=== PATIENT | male | born 1940 | race Caucasian/White ===

== ENCOUNTER 2017-02-09 10:27 | Day surgery (SDC) | payer MEDICARE, BC ==
[2017-02-05 11:00] VITALS: BMI 27.8
[~2017-02-09 10:27] MED LIST: LACTATED RINGERS 1,000 ML IV SCH
[2017-02-09 12:06] VITALS: RESP 16; TEMP 97.6
[2017-02-09] MEDS ORDERED: LIDOCAINE 1% 20 ML VIAL (10MG/ML) FOR IV START INTRADERMA ONE (12:13)
[2017-02-09] MEDS ORDERED: PROPOFOL 10 MG/ML 20 ML VIAL IV ONE (12:29)
[2017-02-09] MEDS ORDERED: LIDOCAINE 1% INJ 10MG/ML (20 ML MDV) ONE (12:29)
--- NOTE | 2017-02-09 12:47 | P.PCN ---
Date of Procedure: 02/09/17 Preoperative Diagnosis: Postoperative Diagnosis: Procedure(s) Performed: Procedure: Esophagogastroduodenoscopy and biopsy. Preoperative diagnosis: Reflux and regurgitation symptoms. Postoperative diagnosis: 1. Small sliding hiatal hernia with no obvious esophagitis or complicated reflux disease. 2. Mild antral gastritis. 3. Multiple biopsies obtained from the duodenum, antrum and esophagus. Preparation and sedation: Was provided by anesthesia. Brief clinical history: The patient is 76-year-old male who was evaluated because of symptoms of reflux and nocturnal regurgitation. This evaluation is to assess for esophagitis, complicated reflux disease or other pathology. Procedure: With the patient on his left lateral decubitus position and after informed consent and adequate sedation, I passed the Olympus-GIF 160 video upper endoscope through the cricopharyngeus down the esophagus. GE junction was around 39-40 cm from the incisors. There was a small sliding hiatal hernia but no evidence of esophagitis or complicated reflux disease. The endoscope was then passed into the stomach which was insufflated with air and inspected in detail including the retroflex view in the cardia. There was some mottling and erythema in the antrum but no ulcers or erosions. Pyloric channel, duodenal bulb, post bulbar area and descending duodenum appeared within normal limits. Because of his symptoms, I obtained multiple biopsies from the duodenum , antrum and esophagus then the endoscope was withdrawn. The patient tolerated the procedure well. Plan: The patient was reassured. Will await biopsy results. In the meantime, he was instructed to continue antireflux diet and measures. Further plans will be made based on his course and biopsy results. I will keep you updated on his progress. Implants: Indications for Procedure: Operative Findings: Description of Procedure:
[2017-02-09 13:07] VITALS: BP 122/72; PULSE 68
== END 2017-02-09 13:18 | disposition home or self-care (01) ==
LOC: ORWHC2ENDO 10:27
DX: K29.50 Unspecified chronic gastritis without bleeding (principal); K21.9 Gastro-esophageal reflux disease without esophagitis; K44.9 Diaphragmatic hernia without obstruction or gangrene; I10 Essential (primary) hypertension; E78.5 Hyperlipidemia, unspecified; Z79.82 Long term (current) use of aspirin; Z79.899 Other long term (current) drug therapy
CPT/HCPCS: 88305; 88342; 43239; J2001; J2704

== ENCOUNTER 2018-05-11 15:42 | Emergency (ER) | payer MEDICARE, BC ==
[2018-05-11 15:54] VITALS: RESP 18
[2018-05-11] MEDS ORDERED: LIDOCAINE URO-JET JELLY 2% 5 ML KIT URETHRAL ONE (16:23)
--- NOTE | 2018-05-11 16:55 | ED ---
Male Urogenital HPI - General Chief complaint: Urogenital Stated complaint: trouble urinating Time Seen by Provider: 05/11/18 16:02 Source: patient, RN notes reviewed Mode of arrival: ambulatory Limitations: no limitations - History of Present Illness Initial comments: 77-year-old male presents emergency Department chief complaint of urinary difficulties. Patient states that he hasn't really has to go only gets a few dribbles out and states that he suddenly loses urine when he relaxes. Patient states that he states that there is just ago. Patient was seen at urgent care and was told that he may have a urinary tract infection as he had some white cells in his urine. Patient states his urine was sent for culture. Patient states that approximately 10 days ago he had his yearly urology visit in which she had rectal exam and normal PSA studies. Patient states that his never been on any medications for BPH family states that has been mildly enlarged. - Related Data Home Medications Medication Instructions Recorded Confirmed Aspirin 81 mg PO DAILY 02/05/17 02/09/17 Atorvastatin [Lipitor] 10 mg PO HS 02/05/17 02/09/17 Biotin 10,000 mcg PO DAILY 02/05/17 02/09/17 Krill Oil 500 mg PO DAILY 02/05/17 02/09/17 Lisinopril [Zestril] 20 mg PO HS 02/05/17 02/09/17 Lutein 25 mg PO DAILY 02/05/17 02/09/17 Saw [place] 450 mg PO DAILY 02/05/17 02/09/17 Previous Rx's Medication Instructions Recorded Tamsulosin [Flomax] 0.4 mg PO DAILY #14 cap 05/11/18 Allergies Allergy/AdvReac Type Severity Reaction Status Date / Time No Known Allergies Allergy Verified 05/11/18 15:53 Review of Systems ROS Statement: Those systems with pertinent positive or pertinent negative responses have been documented in the HPI. ROS Other: All systems not noted in ROS Statement are negative. Past Medical History Past Medical History: Hypertension Additional Past Medical History / Comment(s): tinnitis History of Any Multi-Drug Resistant Organisms: None Reported Past Surgical History: Tonsillectomy Additional Past Surgical History / Comment(s): colonoscopy Past Anesthesia/Blood Transfusion Reactions: No Reported Reaction Additional Past Anesthesia/Blood Transfusion Reaction / Comment(s): no hx blood transfusion Past Psychological History: No Psychological Hx Reported Smoking Status: Former smoker Past Alcohol Use History: Occasional Past Drug Use History: None Reported - Past Family History Mother Family Medical History: No Reported History Father Family Medical History: Cancer Additional Family Medical History / Comment(s): lung General Exam Limitations: no limitations General appearance: alert, in no apparent distress Respiratory exam: Present: normal lung sounds bilaterally. Absent: respiratory distress, wheezes, rales, rhonchi, stridor Cardiovascular Exam: Present: regular rate, normal rhythm, normal heart sounds. Absent: systolic murmur, diastolic murmur, rubs, gallop, clicks GI/Abdominal exam: Present: soft, normal bowel sounds. Absent: distended, tenderness, guarding, rebound, rigid Back exam: Absent: CVA tenderness (R), CVA tenderness (L) Course Vital Signs 05/11/18 15:46 Temperature 98.5 F Pulse Rate 77 Respiratory 18 Rate Blood Pressure 161/73 O2 Sat by Pulse 96 Oximetry Medical Decision Making - Medical Decision Making 77-year-old male presents emergency from for difficulty urinating. Patient was found have bladder scan of almost 500mls. Patient had a Avilez placed and symptoms relieved. Patient will leave Avilez catheter and follow-up with his urologist and be placed on Flomax at this time. - Lab Data Lab Results 05/11/18 Range/Units 16:32 Urine Color Yellow Urine Appearance Clear (Clear) Urine pH 5.5 (5.0-8.0) Ur Specific [place] 1.013 (1.001-1.035) Urine Protein Negative (Negative) Urine Glucose (UA) Negative (Negative) Urine Ketones 1+ H (Negative) Urine Blood Small H (Negative) Urine Nitrite Negative (Negative) Urine Bilirubin Negative (Negative) Urine Urobilinogen <2.0 (<2.0) mg/dL Ur Leukocyte Esterase Trace H (Negative) Urine RBC 2 (0-5) /hpf Urine WBC 3 (0-5) /hpf Ur Squamous Epith Cells <1 (0-4) /hpf Urine Bacteria Rare H (None) /hpf Urine Mucus Rare H (None) /hpf Disposition Clinical Impression: Urinary retention Disposition: HOME SELF-CARE Condition: Stable Instructions: Urinary Retention in Men (ED), Enlarged Prostate (BPH) (ED) Additional Instructions: Please return to the Emergency Department if symptoms worsen or any other concerns. Prescriptions: Tamsulosin [Flomax] 0.4 mg PO DAILY #14 cap Is patient prescribed a controlled substance at d/c from ED?: No Referrals: Fany King III, MD [Primary Care Provider] - 1-2 days Time of Disposition: 17:40
--- NOTE | 2018-05-11 17:06 | XR ---
EXAMINATION TYPE: XR KUB DATE OF EXAM: 05/11/2018 COMPARISON: NONE HISTORY: Dysuria TECHNIQUE: 2 views upright FINDINGS: There is no sign of intestinal obstruction or pneumoperitoneum. Fecal pattern is normal. Th ere are no pathologic calcifications over the kidneys. Lung bases are clear. There is no evidence of a mass. IMPRESSION: Nonacute abdomen.
[2018-05-11 17:11] LABS: Appearance,Urine Clear (Clear); Bacteria,Urine Rare /hpf; Bilirubin,Urine Negative (Negative); Blood,Urine Small (Negative); Color,Urine Yellow; Glucose,Urine (UA) Negative (Negative); Ketones,Urine 1+ (Negative); Leukocyte Esterase,Urine Trace (Negative); Mucus,Urine Rare /hpf; Nitrite,Urine Negative (Negative); PH, Urine 5.5 (5.0-8.0); Protein,Urine Negative (Negative); RBC,Urine 2 /hpf (0-5); Specific Gravity,Urine 1.013 (1.001-1.035); Squamous Epithelial Cell,Urine <1 /hpf (0-4); Urobilinogen,Urine <2.0 mg/dL (<2.0); WBC,Urine 3 /hpf (0-5)
[2018-05-11 17:52] VITALS: BP 132/80; PULSE 74; TEMP 97.8
== END 2018-05-11 18:07 | disposition home or self-care (01) ==
LOC: EC 15:42
DX: R33.9 Retention of urine, unspecified (principal); R30.0 Dysuria; I10 Essential (primary) hypertension; Z87.891 Personal history of nicotine dependence; Z98.890 Other specified postprocedural states; Z79.82 Long term (current) use of aspirin; Z79.899 Other long term (current) drug therapy
CPT/HCPCS: 51702; 74018; 81001; 87086; 99284

== ENCOUNTER → 2018-11-03 | Outpatient (CLI) | payer MEDICARE, BC ==
--- NOTE | 2018-11-03 14:33 | US ---
EXAMINATION TYPE: US kidneys/renal and bladder DATE OF EXAM: 11/03/2018 COMPARISON: NONE CLINICAL HISTORY: 78-year-old male UTI N39.0. TECHNIQUE: Multiple sonographic images of the kidneys and bladder are obtained. FINDINGS: Manager Placement notes: Limitations due to bowel gas and patient's large body habitus . EXAM MEASUREMENTS: Right Kidney: 11.0 x x5.4 x 6.6 cm Left Kidney: 11.1x 6.4 x 4.9 cm Post Void Residual Volume: 67 mL Right Kidney: No hydronephrosis or masses seen , possible calculi lateral Left Kidney: cyst lower pole 1.0 x 2.0 x 1.5 cm Bladder: Mild circumferential wall thickening at 0.6 cm. There is lobulated mural based soft tissue e xtending into the posterior bladder base measuring 4.3 x 3.6 x 3.5 cm arising in the expected locatio n of the median lobe of the prostate gland. A second audio technician examined the bladder to confirm that this represented the prostate gland rather than a bladder mass. Bilateral Jets seen: Yes Normal Post Void Residual: No IMPRESSION: 1. No hydronephrosis on either side. 2. Mild circumferential bladder wall thickening suggests chronic bladder wall hypertrophy or cystitis . 3. Apparent lobulated enlargement of the median lobe of the prostate gland with 4.3 x 3.6 x 3.5 cm so ft tissue extending into the posterior bladder base. A urothelial lesion is considered less likely gi elkin the location and apparent contiguity with the prostate gland below. Clinically correlate with PSA , TRACEY, patient's symptoms, and urine cytology. 4. Postvoid bladder volume of 67 mL compatible with urinary retention.
== END | disposition home or self-care (01) ==
LOC: RADUSWWP 10:30
PROVIDERS: ATTEND Urology
DX: N32.89 Other specified disorders of bladder (principal); N40.0 Benign prostatic hyperplasia without lower urinary tract symptoms
CPT/HCPCS: 76770

== ENCOUNTER → 2019-08-31 | Outpatient (CLI) | payer MEDICARE, BC | END | disposition home or self-care (01) | LOC: RADMRIMAIN 09:06 | PROVIDERS: ATTEND Family Medicine | DX: Z53.9 Procedure and treatment not carried out, unspecified reason (principal) ==

== ENCOUNTER → 2020-11-19 | Outpatient (CLI) | payer MEDICARE, BC ==
--- NOTE | 2020-11-19 17:01 | ECHOF ---
Referral Reason:I34.0 Nonrheumatic mitral (valve) insufficiency MEASUREMENTS -------- HEIGHT: 180.3 cm WEIGHT: 84.8 kg BP: 166/72 IVSd: 1.3 cm (0.6 - 1.1) LVIDd: 3.6 cm (3.9 - 5.3) LVPWd: 1.2 cm (0.6 - 1.1) EDV(Teich): 55 ml IVSs: 1.8 cm LVIDs: 2.8 cm LVPWs: 1.4 cm %IVS Thck: 35 % ESV(Teich): 30 ml EF(Teich): 46 % %FS: 22 % SV(Teich): 25 ml LVOT Diam: 2.1 cm LA Diam: 3.1 cm (2.7 - 3.8) RVIDd: 3.1 cm (< 3.3) LALs A4C: 4.7 cm LAAs A4C: 16.3 cm LAESV A-L A4C: 48 ml LAESV MOD A4C: 44 ml LALs A2C: 5.1 cm LAAs A2C: 16.7 cm LAESV A-L A2C: 47 ml LAESV MOD A2C: 43 ml LAESV(A-L): 49 ml LAESV Index (A-L): 23.97 ml/m Ao Diam: 3.6 cm (2.0 - 3.7) AV Cusp: 1.4 cm (1.5 - 2.6) EPSS: 0.4 cm MV E Hernandez: 0.60 m/s MV DecT: 319 ms MV Dec [place]: 1.9 m/s MV A Hernandez: 1.05 m/s MV E/A Ratio: 0.57 MV PHT: 93 ms LVOT Vmax: 1.49 m/s LVOT maxP.87 mmHg LVOT Vmax: 1.52 m/s LVOT Vmean: 0.94 m/s LVOT maxP.23 mmHg LVOT meanP.20 mmHg LVOT Env.Ti: 332 ms LVOT VTI: 31.1 cm AV Vmax: 2.41 m/s AV maxP.17 mmHg DONNELL Vmax, Pt: 2.1 cm DONNELL Vmax: 2.2 cm AV Vmax: 2.53 m/s AV Vmean: 1.70 m/s AV maxP.70 mmHg AV meanP.88 mmHg AV Env.Ti: 318 ms AV VTI: 54.2 cm DONNELL Vmax: 2.0 cm DONNELL (VTI): 2.0 cm DONNELL Vmax, Pt: 2.0 cm MV EF SLOPE: 35.31 mm/s (70 - 150) MV EXCURSION: 17.35 mm (> 18.000) FINDINGS -------- Sinus rhythm. This was a technically good study. The left ventricular size is normal. There is mild concentric left ventricular hypertrophy. Overa ll left ventricular systolic function is normal with, an EF between 60 - 65 %. The right ventricle is normal in size. Normal LA size by volume 22+/-6 ml/m2. The right atrium is normal in size. Aneurysmal Interatrial septum. There is mild to moderate aortic valve sclerosis. Trace amount of aortic regurgitation. There is mild aortic stenosis present. Peak/mean gradient across the Aortic Valve is 25.70mmHg / 13.88mmHg. The mitral valve leaflets are mildly thickened. Mild mitral annular calcification present. There is trace to mild mitral regurgitation. The tricuspid valve appears structurally normal. Unable to estimate RVSP due to inadequate TR jet s pectral doppler profile. Trace/mild (physiologic) pulmonic regurgitation. The aortic root size is normal. Normal inferior vena cava with normal inspiratory collapse consistent with estimated right atrial pre ssure of 5 mmHg. There is no pericardial effusion. CONCLUSIONS -------- 1. The left ventricular size is normal. 2. There is mild concentric left ventricular hypertrophy. 3. Overall left ventricular systolic function is normal with, an EF between 60 - 65 %. 4. Aneurysmal Interatrial septum. 5. There is mild to moderate aortic valve sclerosis. 6. Trace amount of aortic regurgitation. 7. There is mild aortic stenosis present. 8. Peak/mean gradient across the Aortic Valve is 25.70mmHg / 13.88mmHg. 9. The mitral valve leaflets are mildly thickened. 10. Mild mitral annular calcification present. 11. There is trace to mild mitral regurgitation. 12. Unable to estimate RVSP due to inadequate TR jet spectral doppler profile. 13. Trace/mild (physiologic) pulmonic regurgitation. 14. There is no pericardial effusion. SHALE PROCESSING TECHNICIAN: Marquita Perkins RDCS
== END | disposition home or self-care (01) ==
LOC: RADECHMAIN 07:44
PROVIDERS: ATTEND Family Medicine
DX: I34.0 Nonrheumatic mitral (valve) insufficiency (principal); I37.1 Nonrheumatic pulmonary valve insufficiency; I51.7 Cardiomegaly; I25.3 Aneurysm of heart; I35.8 Other nonrheumatic aortic valve disorders; I35.0 Nonrheumatic aortic (valve) stenosis
CPT/HCPCS: 93306

== ENCOUNTER → 2021-06-30 | Outpatient (CLI) | payer MEDICARE, BC ==
[2021-06-30 08:15] LABS: African American GFR (CKD) >90 (>60 ml/min/1.73 sqM); Blood Urea Nitrogen 17 mg/dL (9-20); Non-African American GFR(CKD) 84 (>60 ml/min/1.73 sqM)
--- NOTE | 2021-06-30 10:49 | CT ---
EXAMINATION TYPE: CT brain w con DATE OF EXAM: 06/30/2021 COMPARISON: None INDICATION: memory loss DLP: 945.5 mGycm, Automated exposure control for dose reduction was used. CONTRAST: 100 mL Isovue-300 CT of the brain is performed utilizing 3 mm thick sections through the posterior fossa and 3 mm thick sections through the remaining calvarium. Study is performed within 24 hours of arrival to the hosp ital. No abnormal hyperdensity is present to suggest an acute intracranial hemorrhage. No mass lesion is evident. No suspicious enhancement is evident. No acute infarcts are evident. Periventricular white matter hypodensity is present, likely on the bas is of chronic white matter ischemic changes. Ventricles and sulci are appropriate for the patient age. Mild mucosal thickening is within ethmoid air cells. Remaining paranasal sinuses and mastoid air cell s are clear. IMPRESSIONS: 1. Normal postcontrast CT brain
== END | disposition home or self-care (01) ==
LOC: RADCTMAIN 07:21
PROVIDERS: ATTEND Family Medicine
DX: R41.3 Other amnesia (principal)
CPT/HCPCS: 82565; 84520; 70460; 36415; Q9967

== ENCOUNTER → 2021-12-05 | Outpatient (CLI) | payer MEDICARE, BC ==
[2021-12-05 14:11] LABS: Basophils # (A) 0.07 X 10*3/uL (0.00-0.10); Basophils % (A) 1.1 %; Eosinophils % (A) 3.1 %; HGB 14.2 g/dL (13.0-17.0); Immature Grans, Automated 0.2 %; Lymphocytes # (A) 1.85 X 10*3/uL (0.90-5.00); Lymphocytes % (A) 28.6 %; MCH 32.1 pg (27.0-32.0); MCHC 33.8 g/dL (32.0-37.0); Mean Platelet Volume 9.3 fL (9.5-12.2); Monocytes % (A) 9.3 %; NRBC Per 100 WBC 0 /100 WBCS (0.0-0.0); Neutrophils # (A) 3.73 X 10*3/uL (1.80-7.70); Neutrophils % (A) 57.7 %; Platelet Count 354 X 10*3/uL (140-440); RBC 4.42 X 10*6/uL (4.40-5.60); RDW 12.5 % (11.5-14.5); WBC 6.46 X 10*3/uL (4.50-10.00)
[2021-12-05 14:51] LABS: Potassium 4.5 mmol/L (3.5-5.5)
[2021-12-05 16:47] LABS: Erythrocyte Sedimentation Rate 10 mm/Hr (0-20)
[2021-12-05 23:05] LABS: T4, Free (Free Thyroxine) 1.5 ng/dL (0.800-1.800)
== END | disposition home or self-care (01) ==
LOC: LABWHC1 09:06
PROVIDERS: ATTEND Psychiatry & Neurology Vascular Neurology
DX: R41.3 Other amnesia (principal)
CPT/HCPCS: 36415; 80051; 82140; 82607; 82746; 84439; 84450; 84460; 84481; 85025; 85652; 86038; 86780

== ENCOUNTER → 2022-02-25 | Outpatient (CLI) | payer MEDICARE, BC ==
[2022-02-25 17:08] LABS: African American GFR (CKD) 93.8 (60.0-200.0); Anion Gap 9.1 mmol/L (10.00-18.00); BUN/Creat Ratio 16.33 Ratio (12.00-20.00); Blood Urea Nitrogen 14.7 mg/dL (9.0-27.0); Calcium 9.6 mg/dL (8.7-10.3); Carbon Dioxide 25.9 mmol/L (20.0-27.5); Non-African American GFR(CKD) 80.9 (60.0-200.0); Potassium 4.1 mmol/L (3.5-5.5)
[2022-02-25 17:23] LABS: Basophils # (A) 0.03 X 10*3/uL (0.00-0.10); Basophils % (A) 0.5 %; Eosinophils # (A) 0.27 X 10*3/uL (0.04-0.35); Eosinophils % (A) 4.1 %; HCT 38.9 % (39.6-50.0); HGB 13.1 g/dL (13.0-17.0); Immature Grans, Automated 0.5 %; Lymphocytes # (A) 1.68 X 10*3/uL (0.90-5.00); Lymphocytes % (A) 25.6 %; MCH 32.7 pg (27.0-32.0); MCHC 33.7 g/dL (32.0-37.0); Mean Platelet Volume 9.8 fL (9.5-12.2); Monocytes # (A) 0.66 X 10*3/uL (0.20-1.00); Monocytes % (A) 10.1 %; NRBC Per 100 WBC 0 /100 WBCS (0.0-0.0); Neutrophils # (A) 3.89 X 10*3/uL (1.80-7.70); Neutrophils % (A) 59.2 %; Platelet Count 297 X 10*3/uL (140-440); RBC 4.01 X 10*6/uL (4.40-5.60); RDW 12.4 % (11.5-14.5); WBC 6.56 X 10*3/uL (4.50-10.00)
== END | disposition home or self-care (01) ==
LOC: LABPAT 10:13
PROVIDERS: ATTEND Urology
DX: Z01.812 Encounter for preprocedural laboratory examination (principal); N40.1 Benign prostatic hyperplasia with lower urinary tract symptoms
CPT/HCPCS: 80048; 85025

== ENCOUNTER 2022-03-05 06:19 | Day surgery (SDC) | payer MEDICARE, BC ==
[2022-03-03 09:58] VITALS: BMI 22.1
[2022-03-05] MEDS ORDERED: ONDANSETRON 4 MG/2 ML VIAL IVP ONE (06:34)
[2022-03-05] MEDS ORDERED: DEXAMETHASONE SOD PHOSPHATE 4 MG/ML 1 ML VIAL IV ONE (06:34)
[2022-03-05] MEDS ORDERED: LIDOCAINE 1% (10MG/ML) FOR IV START INTRADERMA PRN (06:34)
[2022-03-05] MEDS ORDERED: LACTATED RINGERS 1,000 ML IV SCH (06:34)
--- NOTE | 2022-03-05 06:44 | P.GSHP ---
History of Present Illness H&P Date: 03/04/22 Chief Complaint: Incomplete bladder emptying The patient is a 81-year-old white male with dementia. He has a history of incomplete bladder emptying due to BPH. He was seen by me in January 2021, at which time the postvoid residual was 2 25 mL. He was taking tamsulosin at that time. His status was essentially changed when he was seen in July 2021. However, when seen recently the postvoid residual had increased to 603 mL. He was offered the options of increasing the tamsulosin dosage to 0.8 mg daily, adding finasteride, or undergoing a TURP. He has chosen the latter. - Constitutional Constitutional: Denies chills, Denies fever - Cardiovascular Cardiovascular: Reports high blood pressure - Genitourinary (Male) Genitourinary: Reports urinary frequency, Reports urinary hesitancy Past Medical History Past Medical History: Hyperlipidemia, Hypertension, Memory Impairment, Prostate Disorder Additional Past Medical History / Comment(s): tinnitis. PROSTATE DISORDER. VASCULAR DEMENTIA AND ALZHEIMER'S History of Any Multi-Drug Resistant Organisms: None Reported Past Surgical History: Tonsillectomy Additional Past Surgical History / Comment(s): colonoscopy. BILAT CATARACTS REMOVED WITH LENS IMPLANTS Past Anesthesia/Blood Transfusion Reactions: No Reported Reaction Additional Past Anesthesia/Blood Transfusion Reaction / Comment(s): no hx blood transfusion Smoking Status: Former smoker - Past Family History Mother Family Medical History: No Reported History Father Family Medical History: Cancer Additional Family Medical History / Comment(s): lung Medications and Allergies Home Medications Medication Instructions Recorded Confirmed Type Aspirin 81 mg PO DAILY 02/05/17 03/03/22 History Atorvastatin [Lipitor] 10 mg PO HS 02/05/17 03/03/22 History Krill Oil 500 mg PO DAILY 02/05/17 03/03/22 History lisinopriL [Zestril] 20 mg PO HS 02/05/17 03/03/22 History Donepezil [Aricept] 5 mg PO BID 03/03/22 03/03/22 History Tamsulosin [Flomax] 0.4 mg PO BID 03/03/22 03/03/22 History Ubidecarenone [Coenzyme Q10] 200 mg PO DAILY 03/03/22 03/03/22 History Allergies Allergy/AdvReac Type Severity Reaction Status Date / Time No Known Allergies Allergy Verified 03/05/22 06:43 Surgical - Exam - General well developed, well nourished, no distress - Respiratory normal respiratory effort - Abdomen Abdomen: soft, non tender, no guarding, no rigid, no rebound Hernia: inguinal - Genitourinary normal penis with no external lesions, testicles non-tender - Rectum Rectum: normal sphincter tone, no masses, other (Prostate moderately enlarged and smooth) - Psychiatric oriented to time, oriented to person, oriented to place, speech is normal, memory intact Assessment and Plan (1) Benign prostatic hyperplasia with lower urinary tract symptoms Current Visit: No Status: Acute Code(s): N40.1 - BENIGN PROSTATIC HYPERPLASIA WITH LOWER URINARY TRACT SYMP SNOMED Code(s): 400944196 Plan: Cystoscopy, TURP: I discussed the options concerning surgery versus medication. I advised him with regard to TURP as opposed to minimally invasive procedures such as Urolift. Potential risks were discussed, including anesthesia, bleeding , infection, incontinence, persistent voiding difficulty, and vesical neck contracture. He and his are aware that he may require hospitalization postoperatively.
[2022-03-05 06:48] VITALS: TEMP 97
[2022-03-05] MEDS ORDERED: HYDROmorphone 0.5 MG/0.5 ML SYRINGE IVP PRN (07:00)
[2022-03-05] MEDS ORDERED: ONDANSETRON 4 MG/2 ML VIAL IVP PRN (07:00)
[2022-03-05] MEDS ORDERED: LIDOCAINE 2% INJ 20 MG/ML (2 ML VIAL) ONE (07:38)
[2022-03-05] MEDS ORDERED: ePHEDrine 50 MG/ML 1 ML VIAL ONE (07:38)
[2022-03-05] MEDS ORDERED: FUROSEMIDE 10 MG/ML 2 ML VIAL ONE (07:38)
[2022-03-05] MEDS ORDERED: fentaNYL (PF) 50 MCG/ML 2 ML AMP ONE (07:38)
[2022-03-05] MEDS ORDERED: PROPOFOL 10 MG/ML 20 ML VIAL IV ONE (07:38)
[2022-03-05] MEDS ORDERED: ROCURONIUM 10 MG/ML (5 ML VIAL) IV ONE (07:38)
[2022-03-05] MEDS ORDERED: HYDROmorphone (PF) 1 MG/ML ONE (07:38)
[2022-03-05] MEDS ORDERED: SUCCINYLCHOLINE CHLORIDE 100 MG/5 ML SYR IV ONE (07:38)
[2022-03-05] MEDS ORDERED: LACTATED RINGERS 1,000 ML IV ONE (10:37)
[2022-03-05 11:35] VITALS: RESP 16
--- NOTE | 2022-03-05 11:41 | P.OP ---
Date of Procedure: 03/05/22 Preoperative Diagnosis: BPH with obstruction Postoperative Diagnosis: Same Procedure(s) Performed: Cystoscopy, bipolar transurethral resection of prostate (TURP) Anesthesia: JORDAN Surgeon: Patrick Ramachandran Estimated Blood Loss (ml): 50 IV fluids (ml): 1,000 Pathology: other (Prostate chips) Condition: stable Disposition: PACU Indications for Procedure: The patient is a 81-year-old white male with dementia. He has a history of incomplete bladder emptying due to BPH. He was seen by me in January 2021, at which time the postvoid residual was 2 25 mL. He was taking tamsulosin at that time. His status was essentially changed when he was seen in July 2021. However, when seen recently the postvoid residual had increased to 603 mL. He was offered the options of increasing the tamsulosin dosage to 0.8 mg daily, adding finasteride, or undergoing a TURP. He has chosen the latter. Operative Findings: Trilobar BPH, completely obstructing. Description of Procedure: The patient was taken in the operating room and placed in the dorsolithotomy position. The external genitalia was prepped and draped sterilely. The 25- [place] [employer] resectoscope sheath was introduced into the bladder. The bladder was inspected. Both ureteral orifices were of normal anatomic location and configuration, and clear urine effluxed from both. No tumors or foreign bodies were seen. The bladder was trabeculated with multiple cellules. Examination of the prostate revealed complete obstruction with a trilobar configuration. Using the bipolar cutting loop, the median lobe was initially resected. Next, the la teral lobes were resected down to the surgical capsule. The floor of the prostate was then resected, proximal to the verumontanum. Next, the remaining anterior tissue was resected. The residual apical tissue was then carefully resected, with care taken to avoid injury to the external urinary sphincter. The resection was carried down to the surgical capsule in all 4 quadrants. The prostatic fossa was then carefully examined, and any areas of bleeding were controlled with electrocautery. Excellent hemostasis was attained. The resectoscope was withdrawn into the bulbous urethra. The external urinary sphincter remained intact. The prostatic fossa was open. The [employer] evacuator was used to remove all prostate chips from the bladder. These were saved and sent for pathologic examination. The resectoscope was removed, and a 20 [place] Avilez catheter was placed. The return was essentially clear. The patient tolerated the procedure well was taken to the recovery room in stable condition.
[2022-03-05 12:34] VITALS: BP 122/69; PULSE 65
== END 2022-03-05 13:18 | disposition home or self-care (01) ==
LOC: OR 06:19
PROVIDERS: ATTEND Urology
DX: N40.1 Benign prostatic hyperplasia with lower urinary tract symptoms (principal); N41.0 Acute prostatitis; N13.8 Other obstructive and reflux uropathy; R39.14 Feeling of incomplete bladder emptying; R39.11 Hesitancy of micturition; R35.0 Frequency of micturition; E78.5 Hyperlipidemia, unspecified; I10 Essential (primary) hypertension; G30.9 Alzheimer's disease, unspecified; F02.80 Dementia in other diseases classified elsewhere, unspecified severity, without behavioral disturbance, psychotic disturbance, mood disturbance, and anxiety; Z87.891 Personal history of nicotine dependence; Z80.1 Family history of malignant neoplasm of trachea, bronchus and lung; Z79.82 Long term (current) use of aspirin; Z79.899 Other long term (current) drug therapy
CPT/HCPCS: 52601; J1100; J1940; J0690; J2405; J3010; J1170; J0330; J2704; J2001; 88305

== ENCOUNTER 2022-03-06 15:54 | Inpatient (IN) | payer MEDICARE, BC ==
[2022-03-06] MEDS ORDERED: cefTRIAXone IN SWFI 1,000 MG/10 ML SYRINGE IVP STA (15:58)
[2022-03-06] MEDS ORDERED: IBUPROFEN IV 600 MG in SODIUM CHLORIDE 0.9% 250 ML IV STA (16:02)
[2022-03-06] MEDS ORDERED: ACETAMINOPHEN IV (For NPO) 1,000 MG in EMPTY BAG 1 BAG IVPB STA (16:03)
[2022-03-06] MEDS: SODIUM CHLORIDE 0.9% 500 ML 500 ML IV SCH ×3 (16:12→18:07)
--- NOTE | 2022-03-06 16:25 | XR ---
EXAMINATION TYPE: XR chest 1V DATE OF EXAM: 03/06/2022 COMPARISON: NONE HISTORY: Fever, altered mental status TECHNIQUE: Single frontal view of the chest is obtained. FINDINGS: There is no focal air space opacity, pleural effusion, or pneumothorax seen. The cardiac silhouette size is within normal limits. There are overlying leads. The osseous structures are intac t, arthropathy noted in the shoulders. IMPRESSION: No acute process.
[2022-03-06 16:32] LABS: Basophils % (A) 0 %; Eosinophils # (A) 0.1 k/uL (0-0.7); Eosinophils % (A) 1 %; HCT 42.2 % (39.0-53.0); HGB 13.8 gm/dL (13.0-17.5); Lymphocytes # (A) 0.9 k/uL (1.0-4.8); Lymphocytes % (A) 9 %; MCH 32.4 pg (25.0-35.0); MCHC 32.7 g/dL (31.0-37.0); Mean Platelet Volume 7.6; Monocytes # (A) 0.1 k/uL (0-1.0); Monocytes % (A) 1 %; Neutrophils % (A) 89 %; Platelet Count 323 k/uL (150-450); RBC 4.26 m/uL (4.30-5.90); RDW 12.4 % (11.5-15.5); WBC 10.1 k/uL (3.8-10.6)
--- NOTE | 2022-03-06 16:40 | ED ---
General Adult HPI - General Chief complaint: Altered Mental Status Stated complaint: AMS Time Seen by Provider: 03/06/22 16:00 Source: patient, family, RN notes reviewed, old records reviewed Mode of arrival: ambulatory Limitations: altered mental status - History of Present Illness Initial comments: This is a 81-year-old male who presents emergency Department because of altered mental status. Patient had prostate surgery yesterday and the states he was doing fine and then today he started to become very cold and shaking because he was so cold and started becoming altered on the way to the hospital she noted that he was started try to spit evenly wasn't spitting anything out. Patient then became combative with her and we got to the emergency department he refused to listen or do anything he was asked to do so he had to be brought back and restrained immediately. Patient's initial rectal temperature was 103. - Related Data Home Medications Medication Instructions Recorded Confirmed lisinopriL [Zestril] 20 mg PO DAILY 02/05/17 03/06/22 Donepezil [Aricept] 5 mg PO BID 03/03/22 03/06/22 Tamsulosin [Flomax] 0.4 mg PO BID 03/03/22 03/06/22 Atorvastatin [Lipitor] 10 mg PO DAILY 03/06/22 03/06/22 Allergies Allergy/AdvReac Type Severity Reaction Status Date / Time No Known Allergies Allergy Verified 03/06/22 18:27 Review of Systems ROS Statement: Those systems with pertinent positive or pertinent negative responses have been documented in the HPI. ROS Other: All systems not noted in ROS Statement are negative. Past Medical History Past Medical History: Hypertension Additional Past Medical History / Comment(s): tinnitis History of Any Multi-Drug Resistant Organisms: None Reported Past Surgical History: Tonsillectomy Additional Past Surgical History / Comment(s): colonoscopy Past Anesthesia/Blood Transfusion Reactions: No Reported Reaction Additional Past Anesthesia/Blood Transfusion Reaction / Comment(s): no hx blood transfusion Past Alcohol Use History: Occasional - Past Family History Mother Family Medical History: No Reported History Father Family Medical History: Cancer Additional Family Medical History / Comment(s): lung General Exam - General Exam Comments Initial Comments: GENERAL: Patient is well-developed and well-nourished. Patient is nontoxic and well- hydrated and is in mild distress. ENT: Neck is soft and supple. No significant lymphadenopathy is noted. Oropharynx is clear. Moist mucous membranes. Neck has full range of motion without eliciting any pain. EYES: The sclera were anicteric and conjunctiva were pink and moist. Extraocular movements were intact and pupils were equal round and reactive to light. Eyelids were unremarkable. PULMONARY: Unlabored respirations. Good breath sounds bilaterally. No audible rales rhonchi or wheezing was noted. CARDIOVASCULAR: There is a regular rate and rhythm without any murmurs gallops or rubs. ABDOMEN: Soft and nontender with normal bowel sounds. She has a Avilez catheter in place SKIN: Skin is clear with no lesions or rashes and otherwise unremarkable. NEUROLOGIC: Patient is alert and oriented 1. Cranial nerves II through XII are grossly intact. Motor and sensory are also intact. Normal speech, volume and content. Symmetrical smile. MUSCULOSKELETAL: Normal extremities with adequate strength and full range of motion. No lower extremity swelling or edema. No calf tenderness. LYMPHATICS: No significant lymphadenopathy is noted PSYCHIATRIC: Patient is very combative Limitations: altered mental status Course Vital Signs 03/06/22 03/06/22 03/06/22 15:58 16:06 16:12 Temperature 103.0 F H Pulse Rate 120 H 121 H Respiratory 24 31 H 26 H Rate Blood Pressure 172/83 129/112 O2 Sat by Pulse 99 99 Oximetry 03/06/22 03/06/22 16:30 16:40 Temperature 98.7 F Pulse Rate 112 H 98 Respiratory 22 23 Rate Blood Pressure 129/58 O2 Sat by Pulse 100 100 Oximetry Procedures - Restraint - Face to Face Restraint Occurrence 1 Patient's Immediate Situation: Endangers self safety, Endangers others' safety, Endangers staff safety Patient's Reaction to the Intervention: Uncooperative, Aggressive, Combative, Restless Patient's Medical & Behavioral Condition: Awake, Confused, Agitated Need to Continue or Terminate Restraint or Seclusion: Continue Face to Face Eval of Restraint Date: 03/06/22 Face to Face Eval of Restraint Time: 15:56 - Sepsis Sepsis Focused Exam #1 Time Sepsis Criteria Met: 17:55 Sepsis Focused Exam Date: 03/06/22 Sepsis Focused Exam Time: 18:52 Sepsis Focused Exam Complete: Yes Vital Signs & RN Notes Reviewed: Yes Capillary Refill: None: Fingers Peripheral Pulses: Normal: Radial (R) Skin Color: Normal for Patient Respiratory Exam: normal lung sounds Cardiovascular Exam: regular rate, normal rhythm Medical Decision Making - Medical Decision Making EKG shows sinus rhythm at 96 bpm MI interval is 205 cardiac 129 QT interval 390 QTC is 444. Patient's EKG shows a right bundle branch block. Patient received 2 g of Rocephin IV. Patient also received 2.5 L of fluid. Patient also received Ofirmev and ibuprofen IV. Patient was much calmer more alert but still not to his neurologic baseline. [facility] admitted the patient wrote admitting orders I consulted Dr. Ramachandran I did speak to Dr. Ramachandran as well. - Lab Data Result diagrams: 03/06/22 16:04 03/06/22 16:04 Lab Results 03/06/22 03/06/22 03/06/22 Range/Units 16:04 16:04 16:04 WBC 10.1 (3.8-10.6) k/uL RBC 4.26 L (4.30-5.90) m/uL Hgb 13.8 (13.0-17.5) gm/dL Hct 42.2 (39.0-53.0) % MCV 99.0 (80.0-100.0) fL MCH 32.4 (25.0-35.0) pg MCHC 32.7 (31.0-37.0) g/dL RDW 12.4 (11.5-15.5) % Plt Count 323 (150-450) k/uL MPV 7.6 Neutrophils % 89 % Lymphocytes % 9 % Monocytes % 1 % Eosinophils % 1 % Basophils % 0 % Neutrophils # 9.0 H (1.3-7.7) k/uL Lymphocytes # 0.9 L (1.0-4.8) k/uL Monocytes # 0.1 (0-1.0) k/uL Eosinophils # 0.1 (0-0.7) k/uL Basophils # 0.0 (0-0.2) k/uL PT 10.8 (9.0-12.0) sec INR 1.0 (<1.2) APTT 22.1 (22.0-30.0) sec Sodium 132 L (137-145) mmol/L Potassium 3.8 (3.5-5.1) mmol/L Chloride 98 (98-107) mmol/L Carbon Dioxide 22 (22-30) mmol/L Anion Gap 12 mmol/L BUN 22 H (9-20) mg/dL Creatinine 1.39 H (0.66-1.25) mg/dL Est GFR (CKD-EPI)AfAm 56 (>60 ml/min/1.73 sqM) Est GFR (CKD-EPI)NonAf 48 (>60 ml/min/1.73 sqM) Glucose 104 H (74-99) mg/dL Plasma Lactic Acid Yimi (0.7-2.0) mmol/L Calcium 9.7 (8.4-10.2) mg/dL Total Bilirubin 0.7 (0.2-1.3) mg/dL AST 28 (17-59) U/L ALT 24 (4-49) U/L Alkaline Phosphatase 85 (38-126) U/L Total Protein 6.9 (6.3-8.2) g/dL Albumin 4.2 (3.5-5.0) g/dL Urine Color Urine Appearance (Clear) Urine pH (5.0-8.0) Ur Specific Dresher (1.001-1.035) Urine Protein (Negative) Urine Glucose (UA) (Negative) Urine Ketones (Negative) Urine Blood (Negative) Urine Nitrite (Negative) Urine Bilirubin (Negative) Urine Urobilinogen (<2.0) mg/dL Ur Leukocyte Esterase (Negative) Urine RBC (0-5) /hpf Urine WBC (0-5) /hpf Urine WBC Clumps (None) /hpf Hyaline Casts (0-2) /lpf Urine Mucus (None) /hpf Coronavirus (PCR) (Not Detectd) Influenza Type A RNA (Not Detectd) Influenza Type B (PCR) (Not Detectd) 03/06/22 03/06/22 03/06/22 Range/Units 16:04 17:13 17:18 WBC (3.8-10.6) k/uL RBC (4.30-5.90) m/uL Hgb (13.0-17.5) gm/dL Hct (39.0-53.0) % MCV (80.0-100.0) fL MCH (25.0-35.0) pg MCHC (31.0-37.0) g/dL RDW (11.5-15.5) % Plt Count (150-450) k/uL MPV Neutrophils % % Lymphocytes % % Monocytes % % Eosinophils % % Basophils % % Neutrophils # (1.3-7.7) k/uL Lymphocytes # (1.0-4.8) k/uL Monocytes # (0-1.0) k/uL Eosinophils # (0-0.7) k/uL Basophils # (0-0.2) k/uL PT (9.0-12.0) sec INR (<1.2) APTT (22.0-30.0) sec Sodium (137-145) mmol/L Potassium (3.5-5.1) mmol/L Chloride (98-107) mmol/L Carbon Dioxide (22-30) mmol/L Anion Gap mmol/L BUN (9-20) mg/dL Creatinine (0.66-1.25) mg/dL Est GFR (CKD-EPI)AfAm (>60 ml/min/1.73 sqM) Est GFR (CKD-EPI)NonAf (>60 ml/min/1.73 sqM) Glucose (74-99) mg/dL Plasma Lactic Acid Yimi 6.2 H* (0.7-2.0) mmol/L Calcium (8.4-10.2) mg/dL Total Bilirubin (0.2-1.3) mg/dL AST (17-59) U/L ALT (4-49) U/L Alkaline Phosphatase (38-126) U/L Total Protein (6.3-8.2) g/dL Albumin (3.5-5.0) g/dL Urine Color Red Urine Appearance Turbid (Clear) Urine pH 6.5 (5.0-8.0) Ur Specific Dresher 1.019 (1.001-1.035) Urine Protein 3+ H (Negative) Urine Glucose (UA) Negative (Negative) Urine Ketones Negative (Negative) Urine Blood Large H (Negative) Urine Nitrite Negative (Negative) Urine Bilirubin Negative (Negative) Urine Urobilinogen <2.0 (<2.0) mg/dL Ur Leukocyte Esterase Large H (Negative) Urine RBC >182 H (0-5) /hpf Urine WBC >182 H (0-5) /hpf Urine WBC Clumps Many H (None) /hpf Hyaline Casts 72 H (0-2) /lpf Urine Mucus Few H (None) /hpf Coronavirus (PCR) (Not Detectd) Influenza Type A RNA Not Detected (Not Detectd) Influenza Type B (PCR) Not Detected (Not Detectd) 03/06/22 Range/Units 17:45 WBC (3.8-10.6) k/uL RBC (4.30-5.90) m/uL Hgb (13.0-17.5) gm/dL Hct (39.0-53.0) % MCV (80.0-100.0) fL MCH (25.0-35.0) pg MCHC (31.0-37.0) g/dL RDW (11.5-15.5) % Plt Count (150-450) k/uL MPV Neutrophils % % Lymphocytes % % Monocytes % % Eosinophils % % Basophils % % Neutrophils # (1.3-7.7) k/uL Lymphocytes # (1.0-4.8) k/uL Monocytes # (0-1.0) k/uL Eosinophils # (0-0.7) k/uL Basophils # (0-0.2) k/uL PT (9.0-12.0) sec INR (<1.2) APTT (22.0-30.0) sec Sodium (137-145) mmol/L Potassium (3.5-5.1) mmol/L Chloride (98-107) mmol/L Carbon Dioxide (22-30) mmol/L Anion Gap mmol/L BUN (9-20) mg/dL Creatinine (0.66-1.25) mg/dL Est GFR (CKD-EPI)AfAm (>60 ml/min/1.73 sqM) Est GFR (CKD-EPI)NonAf (>60 ml/min/1.73 sqM) Glucose (74-99) mg/dL Plasma Lactic Acid Yimi (0.7-2.0) mmol/L Calcium (8.4-10.2) mg/dL Total Bilirubin (0.2-1.3) mg/dL AST (17-59) U/L ALT (4-49) U/L Alkaline Phosphatase (38-126) U/L Total Protein (6.3-8.2) g/dL Albumin (3.5-5.0) g/dL Urine Color Urine Appearance (Clear) Urine pH (5.0-8.0) Ur Specific Dresher (1.001-1.035) Urine Protein (Negative) Urine Glucose (UA) (Negative) Urine Ketones (Negative) Urine Blood (Negative) Urine Nitrite (Negative) Urine Bilirubin (Negative) Urine Urobilinogen (<2.0) mg/dL Ur Leukocyte Esterase (Negative) Urine RBC (0-5) /hpf Urine WBC (0-5) /hpf Urine WBC Clumps (None) /hpf Hyaline Casts (0-2) /lpf Urine Mucus (None) /hpf Coronavirus (PCR) Not Detected (Not Detectd) Influenza Type A RNA (Not Detectd) Influenza Type B (PCR) (Not Detectd) Critical Care Time Critical Care Time: Yes Total Critical Care Time: 35 Disposition Clinical Impression: Urinary tract infection, Sepsis, Altered mental status Disposition: ADMITTED IP TO THIS HOSP Referrals: Fany King III, MD [Primary Care Provider] - 1-2 days Time of Disposition: 18:22
[2022-03-06 16:55] LABS: Albumin 4.2 g/dL (3.5-5.0); Calcium 9.7 mg/dL (8.4-10.2); Potassium 3.8 mmol/L (3.5-5.1); Total Bilirubin 0.7 mg/dL (0.2-1.3); Total Protein 6.9 g/dL (6.3-8.2)
[2022-03-06 16:58] LABS: Partial Thromboplastin Time 22.1 sec (22.0-30.0); Prothrombin Time 10.8 sec (9.0-12.0)
[2022-03-06 17:30] LABS: Appearance,Urine Turbid (Clear); Bilirubin,Urine Negative (Negative); Blood,Urine Large (Negative); Color,Urine Red; Glucose,Urine (UA) Negative (Negative); Hyaline Casts,Urine 72 /lpf (0-2); Ketones,Urine Negative (Negative); Leukocyte Esterase,Urine Large (Negative); Mucus,Urine Few /hpf; Nitrite,Urine Negative (Negative); PH, Urine 6.5 (5.0-8.0); Protein,Urine 3+ (Negative); RBC,Urine >182 /hpf (0-5); Specific Gravity,Urine 1.019 (1.001-1.035); Urobilinogen,Urine <2.0 mg/dL (<2.0); WBC,Urine >182 /hpf (0-5)
[2022-03-06] MEDS ORDERED: VANCOMYCIN IV PER PHARMACY 1 EACH MISC MISCELLANE PRN (18:22)
[2022-03-06] MEDS ORDERED: VANCOMYCIN 1,500 MG in SODIUM CHLORIDE 0.9% 250 ML IVPB ONE (19:00)
[2022-03-06] MEDS ORDERED: ACETAMINOPHEN TAB 325 MG TAB PO PRN (19:06)
[2022-03-06] MEDS: IBUPROFEN 600 MG TAB PO SCH (22:09)
[2022-03-06] MEDS: DONEPEZIL 5 MG TAB PO SCH (22:09)
[2022-03-06] MEDS: TAMSULOSIN 0.4 MG CAP.ER.24H PO SCH (22:10)
--- NOTE | 2022-03-06 22:20 | P.GSCN ---
History of Present Illness Consult date: 03/06/22 Reason for Consult: Fever Requesting physician: Shruthi Zepeda History of present illness: The patient is a 81-year-old white male who underwent a TURP yesterday. The prostate was significantly enlarged, but the procedure was uncomplicated and he was discharged home postoperatively. He presented to the ER today with fever and confusion. He is now comfortable and relaxed. Review of Systems - Constitutional Denies chills, Denies fever - Genitourinary Reports as per HPI - Neurological Reports confusion Past Medical History Past Medical History: Hypertension Additional Past Medical History / Comment(s): tinnitis History of Any Multi-Drug Resistant Organisms: None Reported Past Surgical History: Prostate Surgery, Tonsillectomy Additional Past Surgical History / Comment(s): colonoscopy Past Anesthesia/Blood Transfusion Reactions: No Reported Reaction Additional Past Anesthesia/Blood Transfusion Reaction / Comm: no hx blood transfusion Past Psychological History: No Psychological Hx Reported Smoking Status: Former smoker Past Alcohol Use History: Occasional Additional Past Alcohol Use History / Comment(s): quit smoking 1998,smoked approx 40 yrs 1ppd Past Drug Use History: None Reported - Past Family History Mother Family Medical History: No Reported History Father Family Medical History: Cancer Additional Family Medical History / Comment(s): lung Medications and Allergies Home Medications Medication Instructions Recorded Confirmed Type lisinopriL [Zestril] 20 mg PO DAILY 02/05/17 03/06/22 History Donepezil [Aricept] 5 mg PO BID 03/03/22 03/06/22 History Tamsulosin [Flomax] 0.4 mg PO BID 03/03/22 03/06/22 History Atorvastatin [Lipitor] 10 mg PO DAILY 03/06/22 03/06/22 History Allergies Allergy/AdvReac Type Severity Reaction Status Date / Time No Known Allergies Allergy Verified 03/06/22 18:27 Surgical - Exam Vital Signs Temp Pulse Resp BP 103.0 F H 120 H 24 172/83 03/06/22 15:58 03/06/22 15:58 03/06/22 15:58 03/06/22 15:58 - General well developed, well nourished, no distress - Respiratory normal respiratory effort - Abdomen Abdomen: soft, non tender, no guarding, no rigid, no rebound - Genitourinary normal penis with no external lesions, testicles non-tender - Psychiatric oriented to time, oriented to person, oriented to place, speech is normal, memory intact Results - Labs 03/06/22 16:04 03/06/22 16:04 Abnormal Lab Results - Last 24 Hours (Table) 03/06/22 03/06/22 03/06/22 Range/Units 16:04 16:04 16:04 RBC 4.26 L (4.30-5.90) m/uL Neutrophils # 9.0 H (1.3-7.7) k/uL Lymphocytes # 0.9 L (1.0-4.8) k/uL Sodium 132 L (137-145) mmol/L BUN 22 H (9-20) mg/dL Creatinine 1.39 H (0.66-1.25) mg/dL Glucose 104 H (74-99) mg/dL Plasma Lactic Acid Yimi 6.2 H* (0.7-2.0) mmol/L Urine Protein (Negative) Urine Blood (Negative) Ur Leukocyte Esterase (Negative) Urine RBC (0-5) /hpf Urine WBC (0-5) /hpf Urine WBC Clumps (None) /hpf Hyaline Casts (0-2) /lpf Urine Mucus (None) /hpf 03/06/22 Range/Units 17:13 RBC (4.30-5.90) m/uL Neutrophils # (1.3-7.7) k/uL Lymphocytes # (1.0-4.8) k/uL Sodium (137-145) mmol/L BUN (9-20) mg/dL Creatinine (0.66-1.25) mg/dL Glucose (74-99) mg/dL Plasma Lactic Acid Yimi (0.7-2.0) mmol/L Urine Protein 3+ H (Negative) Urine Blood Large H (Negative) Ur Leukocyte Esterase Large H (Negative) Urine RBC >182 H (0-5) /hpf Urine WBC >182 H (0-5) /hpf Urine WBC Clumps Many H (None) /hpf Hyaline Casts 72 H (0-2) /lpf Urine Mucus Few H (None) /hpf Diabetes panel 03/06/22 Range/Units 16:04 Sodium 132 L (137-145) mmol/L Potassium 3.8 (3.5-5.1) mmol/L Chloride 98 (98-107) mmol/L Carbon Dioxide 22 (22-30) mmol/L BUN 22 H (9-20) mg/dL Creatinine 1.39 H (0.66-1.25) mg/dL Glucose 104 H (74-99) mg/dL Calcium 9.7 (8.4-10.2) mg/dL AST 28 (17-59) U/L ALT 24 (4-49) U/L Alkaline Phosphatase 85 (38-126) U/L Total Protein 6.9 (6.3-8.2) g/dL Albumin 4.2 (3.5-5.0) g/dL Calcium panel 03/06/22 Range/Units 16:04 Calcium 9.7 (8.4-10.2) mg/dL Albumin 4.2 (3.5-5.0) g/dL Pituitary panel 03/06/22 Range/Units 16:04 Sodium 132 L (137-145) mmol/L Potassium 3.8 (3.5-5.1) mmol/L Chloride 98 (98-107) mmol/L Carbon Dioxide 22 (22-30) mmol/L BUN 22 H (9-20) mg/dL Creatinine 1.39 H (0.66-1.25) mg/dL Glucose 104 H (74-99) mg/dL Calcium 9.7 (8.4-10.2) mg/dL Adrenal panel 03/06/22 Range/Units 16:04 Sodium 132 L (137-145) mmol/L Potassium 3.8 (3.5-5.1) mmol/L Chloride 98 (98-107) mmol/L Carbon Dioxide 22 (22-30) mmol/L BUN 22 H (9-20) mg/dL Creatinine 1.39 H (0.66-1.25) mg/dL Glucose 104 H (74-99) mg/dL Calcium 9.7 (8.4-10.2) mg/dL Total Bilirubin 0.7 (0.2-1.3) mg/dL AST 28 (17-59) U/L ALT 24 (4-49) U/L Alkaline Phosphatase 85 (38-126) U/L Total Protein 6.9 (6.3-8.2) g/dL Albumin 4.2 (3.5-5.0) g/dL Assessment and Plan (1) Benign prostatic hyperplasia with lower urinary tract symptoms Current Visit: No Status: Acute Code(s): N40.1 - BENIGN PROSTATIC HYPERPLASIA WITH LOWER URINARY TRACT SYMP SNOMED Code(s): 986883595 Plan: The patient's clinical picture is consistent with sepsis. He is currently stable. His Avilez catheter is draining clear yellow urine. He did not have a preoperative urine culture, but recent urinalysis in the office showed no evidence of infection. I would suggest he continue to be treated with Rocephin, pending urine and blood culture results. The Avilez catheter should remain in place.
[2022-03-07] MEDS ORDERED: VANCOMYCIN IV PER PHARMACY 1 EACH MISC MISCELLANE PRN (06:22)
[2022-03-07] MEDS: lisinopriL 20 MG TAB PO SCH (07:59)
[2022-03-07] MEDS: DONEPEZIL 5 MG TAB PO SCH ×2 (07:59→21:03)
[2022-03-07] MEDS: IBUPROFEN 600 MG TAB PO SCH ×4 (07:59→21:03)
[2022-03-07] MEDS: ATORVASTATIN 10 MG TAB PO SCH (07:59)
[2022-03-07] MEDS: DOCUSATE 100 MG CAP PO SCH ×2 (07:59→21:02)
[2022-03-07] MEDS: TAMSULOSIN 0.4 MG CAP.ER.24H PO SCH ×2 (08:00→21:02)
[2022-03-07 08:12] LABS: Basophils # (A) 0.1 k/uL (0-0.2); Basophils % (A) 0 %; Eosinophils # (A) 0.2 k/uL (0-0.7); Eosinophils % (A) 2 %; HCT 36.6 % (39.0-53.0); HGB 12.2 gm/dL (13.0-17.5); Lymphocytes # (A) 0.5 k/uL (1.0-4.8); Lymphocytes % (A) 5 %; MCHC 33.4 g/dL (31.0-37.0); MCV 101.6 fL (80.0-100.0); Macrocytosis Slight; Mean Platelet Volume 8.2; Monocytes # (A) 0.3 k/uL (0-1.0); Monocytes % (A) 3 %; Neutrophils # (A) 10.4 k/uL (1.3-7.7); Neutrophils % (A) 89 %; Platelet Count 251 k/uL (150-450); RDW 12.9 % (11.5-15.5); WBC 11.6 k/uL (3.8-10.6)
[2022-03-07 08:19] LABS: African American GFR (CKD) >90 (>60 ml/min/1.73 sqM); Anion Gap 6 mmol/L; Blood Urea Nitrogen 16 mg/dL (9-20); C Reactive Protein 8.7 mg/dL (<1.0); Calcium 8.6 mg/dL (8.4-10.2); Carbon Dioxide 22 mmol/L (22-30); Chloride 108 mmol/L (98-107); Glucose 96 mg/dL (74-99); Non-African American GFR(CKD) 83 (>60 ml/min/1.73 sqM); Potassium 4.2 mmol/L (3.5-5.1); Sodium 136 mmol/L (137-145)
[2022-03-07] MEDS ORDERED: VANCOMYCIN 1,250 MG in SODIUM CHLORIDE 0.9% 250 ML IVPB SCH ×2 (10:00→22:00)
[2022-03-07 11:58] VITALS: BMI 22.7
--- NOTE | 2022-03-07 13:34 | P.HPIM ---
History of Present Illness H&P Date: 03/06/22 Chief Complaint: Altered Mental Status 81-year-old male who presents emergency Department because of altered mental status. Patient had prostate surgery yesterday and the states he was doing fine and then today he started to become very cold and shaking because he was so cold and started becoming altered on the way to the hospital she noted that he was started try to spit evenly wasn't spitting anything out. Patient then became combative with her and we got to the emergency department he refused to listen or do anything he was asked to do so he had to be brought back and restrained immediately. Patient's initial rectal temperature was 103. EKG shows sinus rhythm at 96 bpm SC interval is 205 cardiac 129 QT interval 390 QTC is 444. Patient's EKG shows a right bundle branch block. Blood work completed in ED reveals WBC of 10, hemoglobin of 13.8 and platelet count of 323, sodium 132, potassium 3.8, BUN/creatinine of 22/1.39; lactic acid elevated at 6.2; UA grossly infected Patient received Rocephin 2 g IV daily and is admitted for sepsis with further evaluation from urology Review of Systems REVIEW OF SYSTEMS: CONSTITUTIONAL: No fever, no malaise, no fatigue. HEENT: No recent visual problems or hearing problems. Denied any sore throat. CARDIOVASCULAR: No chest pain, orthopnea, PND, no palpitations, no syncope. PULMONARY: No shortness of breath, no cough, no hemoptysis. GASTROINTESTINAL: No diarrhea, no nausea, no vomiting, no abdominal pain. NEUROLOGICAL: No headaches, no weakness, no numbness. HEMATOLOGICAL: Denies any bleeding or petechiae. GENITOURINARY: Denies any burning micturition, frequency, or urgency. MUSCULOSKELETAL/RHEUMATOLOGICAL: Denies any joint pain, swelling, or any muscle pain. ENDOCRINE: Denies any polyuria or polydipsia. The rest of the 14-point review of systems is negative. Past Medical History Past Medical History: Hypertension Additional Past Medical History / Comment(s): tinnitis History of Any Multi-Drug Resistant Organisms: None Reported Past Surgical History: Tonsillectomy Additional Past Surgical History / Comment(s): colonoscopy Past Anesthesia/Blood Transfusion Reactions: No Reported Reaction Additional Past Anesthesia/Blood Transfusion Reaction / Comment(s): no hx blood transfusion Past Alcohol Use History: Occasional - Past Family History Mother Family Medical History: No Reported History Father Family Medical History: Cancer Additional Family Medical History / Comment(s): lung Medications and Allergies Home Medications Medication Instructions Recorded Confirmed Type lisinopriL [Zestril] 20 mg PO DAILY 02/05/17 03/06/22 History Donepezil [Aricept] 5 mg PO BID 03/03/22 03/06/22 History Tamsulosin [Flomax] 0.4 mg PO BID 03/03/22 03/06/22 History Atorvastatin [Lipitor] 10 mg PO DAILY 03/06/22 03/06/22 History Allergies Allergy/AdvReac Type Severity Reaction Status Date / Time No Known Allergies Allergy Verified 03/06/22 18:27 Physical Exam Vitals: Vital Signs Temp Pulse Resp BP Pulse Ox 03/06/22 16:40 98.7 F 98 23 129/58 100 03/06/22 16:30 112 H 22 100 03/06/22 16:12 26 H 99 03/06/22 16:06 121 H 31 H 129/112 99 03/06/22 15:58 103.0 F H 120 H 24 172/83 Intake and Output 03/06/22 03/06/22 03/06/22 06:59 14:59 22:59 Other: Weight 73.936 kg General appearance: Present: average body habitus, cooperative, no acute distress Eyes: Present: anicteric sclerae, EOMI, PERRLA, normal appearance Neck: Present: normal ROM. Absent: lymphadenopathy, rigidity, thyromegaly Carotids: negative: bruit present Thyroid: bilateral: normal size, negative: enlarged, nodule Respiratory: bilateral: CTA, negative: rales, rhonchi, wheezing Cardiovascular: regular; normal: S1, S2 Gastrointestinal: Present: normal bowel sounds, soft. Absent: distended, organomegaly, tenderness Genitourinary Comment(s): deferred Integumentary: Present: normal turgor. Absent: jaundiced, rash, ulcer Neurologic: Present: CNII-XII intact. Absent: focal deficits Musculoskeletal: Present: gait normal, strength equal bilaterally Psychiatric: Present: A&O x's 3, appropriate affect, intact judgment & insight Results CBC & Chem 7: 03/07/22 07:50 03/07/22 07:50 Labs: Abnormal Lab Results - Last 24 Hours (Table) 03/06/22 03/06/22 03/06/22 Range/Units 16:04 16:04 16:04 RBC 4.26 L (4.30-5.90) m/uL Neutrophils # 9.0 H (1.3-7.7) k/uL Lymphocytes # 0.9 L (1.0-4.8) k/uL Sodium 132 L (137-145) mmol/L BUN 22 H (9-20) mg/dL Creatinine 1.39 H (0.66-1.25) mg/dL Glucose 104 H (74-99) mg/dL Plasma Lactic Acid Yimi 6.2 H* (0.7-2.0) mmol/L Urine Protein (Negative) Urine Blood (Negative) Ur Leukocyte Esterase (Negative) Urine RBC (0-5) /hpf Urine WBC (0-5) /hpf Urine WBC Clumps (None) /hpf Hyaline Casts (0-2) /lpf Urine Mucus (None) /hpf 03/06/22 Range/Units 17:13 RBC (4.30-5.90) m/uL Neutrophils # (1.3-7.7) k/uL Lymphocytes # (1.0-4.8) k/uL Sodium (137-145) mmol/L BUN (9-20) mg/dL Creatinine (0.66-1.25) mg/dL Glucose (74-99) mg/dL Plasma Lactic Acid Yimi (0.7-2.0) mmol/L Urine Protein 3+ H (Negative) Urine Blood Large H (Negative) Ur Leukocyte Esterase Large H (Negative) Urine RBC >182 H (0-5) /hpf Urine WBC >182 H (0-5) /hpf Urine WBC Clumps Many H (None) /hpf Hyaline Casts 72 H (0-2) /lpf Urine Mucus Few H (None) /hpf Assessment and Plan Assessment: 1. Sepsis/UTI; patient has been placed on Rocephin 2 g IV daily along with IV vancomycin per pharmacy dosing service; urology is consulted and recommendations are appreciated; blood culture and urine culture was obtained in ED and pending - We will consult ID for further recommendations 2. Altered mental status; toxic metabolic encephalopathy; likely related to UTI, sepsis, AK I 3. Acute renal injury; IV fluid hydration; patient received IV fluids per sepsis protocol and remains on maintenance fluids at rate of 100 mL an hour; we will monitor strict CAROLIN's, daily weights, renal function and electrolytes; avoid nephrotoxins and hypotension 4. Lactic acidosis; patient received IV fluids per sepsis protocol; we will monitor lactic acid levels every 4 hours to normal 5. Hypertension; continue with home dose of lisinopril 20 mg daily 6. Hyperlipidemia; Lipitor 10 mg by mouth daily at bedtime 7. BPH; Flomax 0.4 mg twice a day 8. Dementia; we will continue with home dose of Aricept DVT prophylaxis; SCDs; hold off on, anticoagulation to the patient evaluated by urology in anticipation of urologic procedures requiting CODE STATUS; full code
[2022-03-07] MEDS: SODIUM CHLORIDE 0.9% 1,000 ML IV SCH (14:02)
--- NOTE | 2022-03-07 14:53 | P.PN ---
Progress Note - Text Progress Note Date: 03/07/22 The patient is comfortable and has no complaints. The Avielz catheter is draining urine which is essentially clear. He is afebrile. His WBC count is mildly elevated (11.6). Blood cultures have shown gram-positive bacilli and gram-negative rods. The urine culture is pending. He has received ceftriaxone and vancomycin and is currently receiving cefepime, pending the final culture results.
[2022-03-07] MEDS: CEFEPIME 2 GM in SODIUM CHLORIDE 0.9% 100 ML IVPB SCH ×2 (15:14→23:30)
--- NOTE | 2022-03-07 22:37 | P.CONS ---
History of Present Illness - Reason for Consult Consult date: 03/07/22 Positive blood culture Requesting physician: Shruthi Zepeda - Chief Complaint Fever with chills x one day - History of Present Illness Patient is a 81-year-old male who is status post cystoscopy with bipolar transurethral resection of the prostate procedure was completed on 03/05/2022 and the patient was discharged home in stable condition with a Avilez catheter patient is presenting to the hospital the next day that is yesterday on 03/06/2022 because of mental status changes noticed the patient becoming very cold and shaking chills and also with the mental status changes for which the patient was brought into the ER on arrival to the ER the patient did have a fever of 103 F patient was not hypoxic or need for supplemental oxygen patient did have a normal mild white count initially subsequent white count this morning of 11.6 with a left shift patient did have a elevated BUN and creatinine and elevated lactic acid which did came down with the fluid and antibiotics patient did have a blood culture drawn which grew gram-positive bacilli as well as gram- negative bacilli patient currently be treated with Rocephin and vancomycin infectious disease was consulted for further management of antibiotic therapy patient did have a chest x-ray no acute process, patient currently denies having any further fever or chills no headache or URI symptoms no chest pain shortness of breath or cough no abdominal pain no diarrhea Review of Systems Positive point has been mentioned in the HPI rest of the systems are negative Past Medical History Past Medical History: Hypertension Additional Past Medical History / Comment(s): tinnitis History of Any Multi-Drug Resistant Organisms: None Reported Past Surgical History: Tonsillectomy Additional Past Surgical History / Comment(s): colonoscopy Past Anesthesia/Blood Transfusion Reactions: No Reported Reaction Additional Past Anesthesia/Blood Transfusion Reaction / Comm: no hx blood transfusion Past Alcohol Use History: Occasional - Past Family History Mother Family Medical History: No Reported History Father Family Medical History: Cancer Additional Family Medical History / Comment(s): lung Medications and Allergies Home Medications Medication Instructions Recorded Confirmed Type lisinopriL [Zestril] 20 mg PO DAILY 02/05/17 03/06/22 History Donepezil [Aricept] 5 mg PO BID 03/03/22 03/06/22 History Tamsulosin [Flomax] 0.4 mg PO BID 03/03/22 03/06/22 History Atorvastatin [Lipitor] 10 mg PO DAILY 03/06/22 03/06/22 History Allergies Allergy/AdvReac Type Severity Reaction Status Date / Time No Known Allergies Allergy Verified 03/06/22 18:27 Physical Exam Vitals: Vital Signs Temp Pulse Pulse Resp BP BP Pulse Ox 03/07/22 08:07 97.8 F 61 18 122/57 100 03/07/22 04:00 98.7 F 66 16 117/56 97 03/07/22 01:58 70 16 03/07/22 00:00 98.4 F 70 16 115/55 100 03/06/22 19:17 98.3 F 68 17 116/56 97 03/06/22 19:10 98.3 F 03/06/22 19:00 81 11 L 118/59 95 03/06/22 18:50 87 21 118/59 95 03/06/22 18:40 84 17 118/59 96 03/06/22 18:30 89 18 133/58 95 03/06/22 18:20 90 22 133/58 93 L 03/06/22 18:10 93 27 H 138/60 95 03/06/22 18:00 88 19 122/78 96 03/06/22 17:50 87 18 122/78 96 03/06/22 17:40 87 23 127/56 99 03/06/22 17:30 90 15 135/49 99 03/06/22 17:20 93 22 135/49 99 03/06/22 17:10 95 27 H 142/53 98 03/06/22 17:01 93 23 130/58 98 03/06/22 16:51 97 22 130/58 98 03/06/22 16:40 98.7 F 98 23 129/58 100 03/06/22 16:30 112 H 22 100 03/06/22 16:12 26 H 99 03/06/22 16:06 121 H 31 H 129/112 99 03/06/22 15:58 103.0 F H 120 H 24 172/83 Intake and Output 03/06/22 03/07/22 03/07/22 22:59 06:59 14:59 Output Total 1200 Balance -1200 Output: Urine 1200 Other: Voiding Method Indwelling Catheter Indwelling Catheter Weight 73.936 kg 73.936 kg GENERAL DESCRIPTION: Elderly male lying in bed, no distress. No tachypnea or accessory muscle of respiration use. HEENT: Shows Pallor , no scleral icterus. Oral mucous membrane is dry. No pharyngeal erythema or thrush NECK: Trachea central, no thyromegaly. LUNGS: Unlabored breathing. Clear to auscultation anteriorly. No wheeze or crackle. HEART: S1, S2, regular rate and rhythm. No loud murmur ABDOMEN: Soft, no tenderness , guarding or rigidity, no organomegaly EXTREMITIES: No edema of feet. SKIN: No rash, no masses palpable. NEUROLOGICAL: The patient is awake, alert, oriented x3, mood and affect normal. Results CBC & Chem 7: 03/07/22 07:50 03/07/22 07:50 Labs: Abnormal Lab Results - Last 24 Hours (Table) 03/06/22 03/06/22 03/06/22 Range/Units 16:04 16:04 16:04 WBC (3.8-10.6) k/uL RBC 4.26 L (4.30-5.90) m/uL Hgb (13.0-17.5) gm/dL Hct (39.0-53.0) % MCV (80.0-100.0) fL Neutrophils # 9.0 H (1.3-7.7) k/uL Lymphocytes # 0.9 L (1.0-4.8) k/uL Sodium 132 L (137-145) mmol/L Chloride (98-107) mmol/L BUN 22 H (9-20) mg/dL Creatinine 1.39 H (0.66-1.25) mg/dL Glucose 104 H (74-99) mg/dL Plasma Lactic Acid Yimi 6.2 H* (0.7-2.0) mmol/L C-Reactive Protein (<1.0) mg/dL Procalcitonin (0.02-0.09) ng/mL Urine Protein (Negative) Urine Blood (Negative) Ur Leukocyte Esterase (Negative) Urine RBC (0-5) /hpf Urine WBC (0-5) /hpf Urine WBC Clumps (None) /hpf Hyaline Casts (0-2) /lpf Urine Mucus (None) /hpf 03/06/22 03/07/22 03/07/22 Range/Units 17:13 07:50 07:50 WBC (3.8-10.6) k/uL RBC (4.30-5.90) m/uL Hgb (13.0-17.5) gm/dL Hct (39.0-53.0) % MCV (80.0-100.0) fL Neutrophils # (1.3-7.7) k/uL Lymphocytes # (1.0-4.8) k/uL Sodium 136 L (137-145) mmol/L Chloride 108 H (98-107) mmol/L BUN (9-20) mg/dL Creatinine (0.66-1.25) mg/dL Glucose (74-99) mg/dL Plasma Lactic Acid Yimi (0.7-2.0) mmol/L C-Reactive Protein 8.7 H (<1.0) mg/dL Procalcitonin 10.80 H (0.02-0.09) ng/mL Urine Protein 3+ H (Negative) Urine Blood Large H (Negative) Ur Leukocyte Esterase Large H (Negative) Urine RBC >182 H (0-5) /hpf Urine WBC >182 H (0-5) /hpf Urine WBC Clumps Many H (None) /hpf Hyaline Casts 72 H (0-2) /lpf Urine Mucus Few H (None) /hpf 03/07/22 Range/Units 07:50 WBC 11.6 H (3.8-10.6) k/uL RBC 3.60 L (4.30-5.90) m/uL Hgb 12.2 L (13.0-17.5) gm/dL Hct 36.6 L (39.0-53.0) % MCV 101.6 H (80.0-100.0) fL Neutrophils # 10.4 H (1.3-7.7) k/uL Lymphocytes # 0.5 L (1.0-4.8) k/uL Sodium (137-145) mmol/L Chloride (98-107) mmol/L BUN (9-20) mg/dL Creatinine (0.66-1.25) mg/dL Glucose (74-99) mg/dL Plasma Lactic Acid Yimi (0.7-2.0) mmol/L C-Reactive Protein (<1.0) mg/dL Procalcitonin (0.02-0.09) ng/mL Urine Protein (Negative) Urine Blood (Negative) Ur Leukocyte Esterase (Negative) Urine RBC (0-5) /hpf Urine WBC (0-5) /hpf Urine WBC Clumps (None) /hpf Hyaline Casts (0-2) /lpf Urine Mucus (None) /hpf Microbiology - Last 24 Hours (Table) 03/06/22 15:50 Blood Culture - Final Blood 03/06/22 16:06 Blood Culture - Final Blood 03/06/22 16:06 Blood Culture Gram Stain - Preliminary Blood 03/06/22 17:13 Urine Culture - Preliminary Urine,Voided Assessment and Plan (1) Positive blood culture Current Visit: Yes Status: Acute Code(s): R78.81 - BACTEREMIA SNOMED C ode(s): 106889913 (2) Sepsis Current Visit: Yes Status: Acute Code(s): A41.9 - SEPSIS, UNSPECIFIED ORGANISM SNOMED Code(s): 48936338 (3) Urinary tract infection Current Visit: Yes Status: Acute Code(s): N39.0 - URINARY TRACT INFECTION, SITE NOT SPECIFIED SNOMED Code(s): 00170037 Plan: 1patient with gram-positive bacilli seen in the blood culture more likely contaminant. 2patient presented to hospital with sepsis in this patient who did have fever elevated white count elevated lactic acid now with evidence of gram-negative bacteremia source likely urinary in this patient just completed cystoscopy and b ipolar transurethral resection of the prostate and will need to cover l for the common urinary Pathogen such as E. coli or Pseudomonas 3discontinue vancomycin and Rocephin 4patient would benefit from a CT of the pelvis to make sure no evidence of any fluid collection that may need to be drained 5we will start the patient cefepime 2 g every 8 hours 6blood cultures will be repeated document clearance of bacteremia. We will follow on clinical condition and cultures to further adjust medication if needed Thank you for this consultation will follow this patient along with you Time with Patient: Greater than 30
[2022-03-08] MEDS: SODIUM CHLORIDE 0.9% 1,000 ML IV SCH ×2 (06:39→18:03)
[2022-03-08] MEDS: CEFEPIME 2 GM in SODIUM CHLORIDE 0.9% 100 ML IVPB SCH ×3 (07:44→23:11)
[2022-03-08] MEDS: ATORVASTATIN 10 MG TAB PO SCH (07:45)
[2022-03-08] MEDS: IBUPROFEN 600 MG TAB PO SCH ×4 (07:45→21:39)
[2022-03-08] MEDS: DONEPEZIL 5 MG TAB PO SCH ×2 (07:45→21:38)
[2022-03-08 07:46] LABS: African American GFR (CKD) >90 (>60 ml/min/1.73 sqM); Anion Gap 3 mmol/L; Blood Urea Nitrogen 14 mg/dL (9-20); Carbon Dioxide 22 mmol/L (22-30); Chloride 109 mmol/L (98-107); Glucose 97 mg/dL (74-99); Non-African American GFR(CKD) 87 (>60 ml/min/1.73 sqM); Potassium 3.6 mmol/L (3.5-5.1); Sodium 134 mmol/L (137-145)
[2022-03-08] MEDS: DOCUSATE 100 MG CAP PO SCH ×2 (07:46→21:39)
[2022-03-08] MEDS: TAMSULOSIN 0.4 MG CAP.ER.24H PO SCH ×2 (07:46→21:38)
[2022-03-08] MEDS: lisinopriL 20 MG TAB PO SCH (07:46)
[2022-03-08 07:58] LABS: C Reactive Protein 14.4 mg/dL (<1.0)
[2022-03-08 07:59] LABS: Calcium 8.2 mg/dL (8.4-10.2)
--- NOTE | 2022-03-08 17:22 | P.PN ---
Subjective Progress Note Date: 03/08/22 Principal diagnosis: Gram-negative bacteremia Patient is a 81-year-old male who is status post cystoscopy with bipolar transurethral resection of the prostate procedure was completed on 03/05/2022 and the patient was discharged home in stable condition with a Avilez catheter patient is presenting to the hospital the next day that is yesterday on 03/06/2022 because of mental status changes, patient also have evidence of gram- negative bacteremia, did have a positive UA . On today's evaluation that is 03/08/2022, the patient denies having any fever or chills, the patient is breathing comfortably on room air, the patient denies any chest pain or shortness of breath or cough no abdominal pain no diarrhea Objective - Vital Signs Vital signs: Vital Signs Temp 98.2 F 03/08/22 15:38 Pulse 61 03/08/22 15:38 Resp 16 03/08/22 15:38 BP 128/57 03/08/22 15:38 Pulse Ox 97 03/08/22 15:38 FiO2 Intake & Output 03/07/22 03/08/22 03/08/22 18:59 06:59 18:59 Intake Total 625 336 Output Total 1775 690 Balance -1775 625 -354 Weight 73.936 kg Intake: IV 100 Cefepime 2 gm In Sodium 100 Chloride 0.9% 100 ml @ 25 mls/hr IVPB Q8HR [facility] Rx# :[id number] Intake, IV Titration 625 Amount Cefepime 2 gm In Sodium 100 Chloride 0.9% 100 ml @ 25 mls/hr IVPB Q8HR [facility] Rx# :[id number] Sodium Chloride 0.9% 1, 525 000 ml @ 75 mls/hr IV . [id number] [facility]O Rx#:[id number] Oral 236 Output: Urine 1775 690 Other: Voiding Method Indwelling Catheter Indwelling Catheter Indwelling Catheter # Voids 3 - Exam GENERAL DESCRIPTION: An elderly male lying in bed in no distress RESPIRATORY SYSTEM: Unlabored breathing , decreased breath sounds at bases HEART: S1 S2 regular rate and rhythm , ABDOMEN: Soft , no tenderness EXTREMITIES: No edema feet - Labs CBC & Chem 7: 03/07/22 07:50 03/08/22 07:11 Labs: Abnormal Lab Results - Last 24 Hours (Table) 07/24/22 Range/Units 07:11 Sodium 134 L (137-145) mmol/L Chloride 109 H (98-107) mmol/L Calcium 8.2 L (8.4-10.2) mg/dL C-Reactive Protein 14.4 H (<1.0) mg/dL Microbiology - Last 24 Hours (Table) 03/06/22 17:13 Urine Culture - Final Urine,Voided 03/06/22 16:06 Blood Culture Gram Stain - Preliminary Blood Blood Culture - Preliminary Bacillus species Not Anthracis Gram Neg Bacilli 03/06/22 15:50 Blood Culture Gram Stain - Preliminary Blood Blood Culture - Preliminary Escherichia coli Assessment and Plan (1) Positive blood culture Current Visit: Yes Status: Acute Code(s): R78.81 - BACTEREMIA SNOMED Code(s): 668221606 (2) Sepsis Current Visit: Yes Status: Acute Code(s): A41.9 - SEPSIS, UNSPECIFIED ORGANISM SNOMED Code(s): 03819293 (3) Urinary tract infection Current Visit: Yes Status: Acute Code(s): N39.0 - URINARY TRACT INFECTION, SITE NOT SPECIFIED SNOMED Code(s): 97853350 Plan: 1patient with gram-positive bacilli seen in the blood culture more likely contaminant. 2patient presented to hospital with sepsis in this patient who did have fever elevated white count elevated lactic acid now with evidence of gram-negative bacteremia source likely urinary in this patient just completed cystoscopy and bipolar transurethral resection of the prostate and will need to cover for the common urinary Pathogen such as E. coli or Pseudomonas 3patient urine cultures are so far negative 4we will obtain CT of the abdomen and pelvis to make sure no evidence of any GI source of his bacteremia 5patient to continue with cefepime 2 g every 8 hours while waiting for the blood cultures to be finalize Time with Patient: Less than 30
--- NOTE | 2022-03-08 20:19 | P.PN ---
Subjective Progress Note Date: 03/07/22 81-year-old male who presents emergency Department because of altered mental status. Patient had prostate surgery yesterday and the states he was doing fine and then today he started to become very cold and shaking because he was so cold and started becoming altered on the way to the hospital she noted that he was started try to spit evenly wasn't spitting anything out. Patient then became combative with her and we got to the emergency department he refused to listen or do anything he was asked to do so he had to be brought back and restrained immediately. Patient's initial rectal temperature was 103. EKG shows sinus rhythm at 96 bpm NV interval is 205 cardiac 129 QT interval 390 QTC is 444. Patient's EKG shows a right bundle branch block. Blood work completed in ED reveals WBC of 10, hemoglobin of 13.8 and platelet count of 323, sodium 132, potassium 3.8, BUN/creatinine of 22/1.39; lactic acid elevated at 6.2; UA grossly infected Patient received Rocephin 2 g IV daily and is admitted for sepsis with further evaluation from urology Objective - Vital Signs Vital signs: Vital Signs Temp 97.8 F 03/07/22 08:07 Pulse 61 03/07/22 08:07 Resp 18 03/07/22 08:07 BP 122/57 03/07/22 08:07 Pulse Ox 100 03/07/22 08:07 FiO2 Intake & Output 03/06/22 03/07/22 03/07/22 18:59 06:59 18:59 Output Total 1200 Balance -1200 Weight 73.936 kg 73.936 kg 73.936 kg Output: Urine 1200 Other: Voiding Method Indwelling Catheter Indwelling Catheter - Exam General appearance: Present: average body habitus, cooperative, no acute distr ess Eyes: Present: anicteric sclerae, EOMI, PERRLA, normal appearance Neck: Present: normal ROM. Absent: lymphadenopathy, rigidity, thyromegaly Carotids: negative: bruit present Thyroid: bilateral: normal size, negative: enlarged, nodule Respiratory: bilateral: CTA, negative: rales, rhonchi, wheezing Cardiovascular: regular; normal: S1, S2 Gastrointestinal: Present: normal bowel sounds, soft. Absent: distended, organomegaly, tenderness Genitourinary Comment(s): deferred Integumentary: Present: normal turgor. Absent: jaundiced, rash, ulcer Neurologic: Present: CNII-XII intact. Absent: focal deficits Musculoskeletal: Present: gait normal, strength equal bilaterally Psychiatric: Present: A&O x's 3, appropriate affect, intact judgment & insight - Labs CBC & Chem 7: 03/07/22 07:50 03/08/22 07:11 Labs: Abnormal Lab Results - Last 24 Hours (Table) 03/06/22 03/06/22 03/06/22 Range/Units 16:04 16:04 16:04 WBC (3.8-10.6) k/uL RBC 4.26 L (4.30-5.90) m/uL Hgb (13.0-17.5) gm/dL Hct (39.0-53.0) % MCV (80.0-100.0) fL Neutrophils # 9.0 H (1.3-7.7) k/uL Lymphocytes # 0.9 L (1.0-4.8) k/uL Sodium 132 L (137-145) mmol/L Chloride (98-107) mmol/L BUN 22 H (9-20) mg/dL Creatinine 1.39 H (0.66-1.25) mg/dL Glucose 104 H (74-99) mg/dL Plasma Lactic Acid Yimi 6.2 H* (0.7-2.0) mmol/L C-Reactive Protein (<1.0) mg/dL Procalcitonin (0.02-0.09) ng/mL Urine Protein (Negative) Urine Blood (Negative) Ur Leukocyte Esterase (Negative) Urine RBC (0-5) /hpf Urine WBC (0-5) /hpf Urine WBC Clumps (None) /hpf Hyaline Casts (0-2) /lpf Urine Mucus (None) /hpf 03/06/22 03/07/22 03/07/22 Range/Units 17:13 07:50 07:50 WBC (3.8-10.6) k/uL RBC (4.30-5.90) m/uL Hgb (13.0-17.5) gm/dL Hct (39.0-53.0) % MCV (80.0-100.0) fL Neutrophils # (1.3-7.7) k/uL Lymphocytes # (1.0-4.8) k/uL Sodium 136 L (137-145) mmol/L Chloride 108 H (98-107) mmol/L BUN (9-20) mg/dL Creatinine (0.66-1.25) mg/dL Glucose (74-99) mg/dL Plasma Lactic Acid Yimi (0.7-2.0) mmol/L C-Reactive Protein 8.7 H (<1.0) mg/dL Procalcitonin 10.80 H (0.02-0.09) ng/mL Urine Protein 3+ H (Negative) Urine Blood Large H (Negative) Ur Leukocyte Esterase Large H (Negative) Urine RBC >182 H (0-5) /hpf Urine WBC >182 H (0-5) /hpf Urine WBC Clumps Many H (None) /hpf Hyaline Casts 72 H (0-2) /lpf Urine Mucus Few H (None) /hpf 03/07/22 Range/Units 07:50 WBC 11.6 H (3.8-10.6) k/uL RBC 3.60 L (4.30-5.90) m/uL Hgb 12.2 L (13.0-17.5) gm/dL Hct 36.6 L (39.0-53.0) % MCV 101.6 H (80.0-100.0) fL Neutrophils # 10.4 H (1.3-7.7) k/uL Lymphocytes # 0.5 L (1.0-4.8) k/uL Sodium (137-145) mmol/L Chloride (98-107) mmol/L BUN (9-20) mg/dL Creatinine (0.66-1.25) mg/dL Glucose (74-99) mg/dL Plasma Lactic Acid Yimi (0.7-2.0) mmol/L C-Reactive Protein (<1.0) mg/dL Procalcitonin (0.02-0.09) ng/mL Urine Protein (Negative) Urine Blood (Negative) Ur Leukocyte Esterase (Negative) Urine RBC (0-5) /hpf Urine WBC (0-5) /hpf Urine WBC Clumps (None) /hpf Hyaline Casts (0-2) /lpf Urine Mucus (None) /hpf Microbiology - Last 24 Hours (Table) 03/06/22 15:50 Blood Culture - Final Blood 03/06/22 16:06 Blood Culture - Final Blood 03/06/22 16:06 Blood Culture Gram Stain - Preliminary Blood 03/06/22 17:13 Urine Culture - Preliminary Urine,Voided Assessment and Plan Assessment: 1. Sepsis/UTI; patient has been placed on Rocephin 2 g IV daily along with IV vancomycin per pharmacy dosing service; urology is consulted and recommendations are appreciated; blood culture and urine culture was obtained in ED and pending - We will consult ID for further recommendations 2. Altered mental status; toxic metabolic encephalopathy; likely related to UTI, sepsis, AK I 3. Acute renal injury; IV fluid hydration; patient received IV fluids per sepsis protocol and remains on maintenance fluids at rate of 100 mL an hour; we will monitor strict CAROLIN's, daily weights, renal function and electrolytes; avoid nephrotoxins and hypotension 4. Lactic acidosis; patient received IV fluids per sepsis protocol; we will monitor lactic acid levels every 4 hours to normal 5. Hypertension; continue with home dose of lisinopril 20 mg daily 6. Hyperlipidemia; Lipitor 10 mg by mouth daily at bedtime 7. BPH; Flomax 0.4 mg twice a day 8. Dementia; we will continue with home dose of Aricept DVT prophylaxis; SCDs; hold off on, anticoagulation to the patient evaluated by urology in anticipation of urologic procedures requiting CODE STATUS; full code
--- NOTE | 2022-03-08 20:22 | P.PN ---
Subjective Progress Note Date: 03/08/22 Principal diagnosis: Sepsis/UTI Altered mental status; toxic metabolic encephalopathy Acute renal injury 81-year-old male who presents emergency Department because of altered mental status. Patient had prostate surgery yesterday and the states he was doing fine and then today he started to become very cold and shaking because he was so cold and started becoming altered on the way to the hospital she noted that he was started try to spit evenly wasn't spitting anything out. Patient then became combative with her and we got to the emergency department he refused to listen or do anything he was asked to do so he had to be brought back and re strained immediately. Patient's initial rectal temperature was 103. EKG shows sinus rhythm at 96 bpm AK interval is 205 cardiac 129 QT interval 390 QTC is 444. Patient's EKG shows a right bundle branch block. Blood work completed in ED reveals WBC of 10, hemoglobin of 13.8 and platelet count of 323, sodium 132, potassium 3.8, BUN/creatinine of 22/1.39; lactic acid elevated at 6.2; UA grossly infected Patient received Rocephin 2 g IV daily and is admitted for sepsis with further evaluation from urology 03/08/2022 Patient is seen and evaluated in room at bedside; patient is resting comfortably in bed and denies any complaint of chest and her shortness of breath Vital signs are reviewed and temperature 98.2, pulse 61, respirations 16 and blood pressure of 128/67 Lab review shows sodium 134, potassium 3.6, BUN/creatinine of 14/0.77 Patient presented to hospital with sepsis in this patient who did have fever elevated white count elevated lactic acid now with evidence of gram-negative bacteremia source likely urinary in this patient just completed cystoscopy and bipolar transurethral resection of the prostate and will need to cover for the common urinary Pathogen such as E. coli or Pseudomonas patient urine cultures are so far negative we will obtain CT of the abdomen and pelvis to make sure no evidence of any GI source of his bacteremia patient to continue with cefepime 2 g every 8 hours while waiting for the blood cultures to be finalize Objective - Vital Signs Vital signs: Vital Signs Temp 98.2 F 03/08/22 15:38 Pulse 61 03/08/22 15:38 Resp 16 03/08/22 15:38 BP 128/57 03/08/22 15:38 Pulse Ox 97 03/08/22 15:38 FiO2 Intake & Output 03/08/22 03/08/22 03/09/22 06:59 18:59 06:59 Intake Total 625 454 Output Total 1020 Balance 625 -566 Intake: IV 100 Cefepime 2 gm In Sodium 100 Chloride 0.9% 100 ml @ 25 mls/hr IVPB Q8HR [facility] Rx# :[id number] Intake, IV Titration 625 Amount Cefepime 2 gm In Sodium 100 Chloride 0.9% 100 ml @ 25 mls/hr IVPB Q8HR [facility] Rx# :[id number] Sodium Chloride 0.9% 1, 525 000 ml @ 75 mls/hr IV . [id number] [facility] Rx#:[id number] Oral 354 Output: Urine 1020 Other: Voiding Method Indwelling Catheter Indwelling Catheter - Exam General appearance: Present: average body habitus, cooperative, no acute distress Eyes: Present: anicteric sclerae, EOMI, PERRLA, normal appearance Neck: Present: normal ROM. Absent: lymphadenopathy, rigidity, thyromegaly Carotids: negative: bruit present Thyroid: bilateral: normal size, negative: enlarged, nodule Respiratory: bilateral: CTA, negative: rales, rhonchi, wheezing Cardiovascular: regular; normal: S1, S2 Gastrointestinal: Present: normal bowel sounds, soft. Absent: distended, organomegaly, tenderness Genitourinary Comment(s): deferred Integumentary: Present: normal turgor. Absent: jaundiced, rash, ulcer Neurologic: Present: CNII-XII intact. Absent: focal deficits Musculoskeletal: Present: gait normal, strength equal bilaterally Psychiatric: Present: A&O x's 3, appropriate affect, intact judgment & insight - Labs CBC & Chem 7: 03/07/22 07:50 03/08/22 07:11 Labs: Abnormal Lab Results - Last 24 Hours (Table) 03/08/22 Range/Units 07:11 Sodium 134 L (137-145) mmol/L Chloride 109 H (98-107) mmol/L Calcium 8.2 L (8.4-10.2) mg/dL C-Reactive Protein 14.4 H (<1.0) mg/dL Microbiology - Last 24 Hours (Table) 03/06/22 17:13 Urine Culture - Final Urine,Voided 03/06/22 16:06 Blood Culture Gram Stain - Preliminary Blood Blood Culture - Preliminary Bacillus species Not Anthracis Gram Neg Bacilli 03/06/22 15:50 Blood Culture Gram Stain - Preliminary Blood Blood Culture - Preliminary Escherichia coli Assessment and Plan Assessment: 1. Sepsis/UTI; patient has been placed on Rocephin 2 g IV daily along with IV vancomycin per pharmacy dosing service; urology is consulted and recommendations are appreciated; blood culture and urine culture was obtained in ED and pending - We will consult ID for further recommendations 2. Altered mental status; toxic metabolic encephalopathy; likely related to UTI, sepsis, AK I 3. Acute renal injury; IV fluid hydration; patient received IV fluids per sep sis protocol and remains on maintenance fluids at rate of 100 mL an hour; we will monitor strict CAROLIN's, daily weights, renal function and electrolytes; avoid nephrotoxins and hypotension 4. Lactic acidosis; patient received IV fluids per sepsis protocol; we will monitor lactic acid levels every 4 hours to normal 5. Hypertension; continue with home dose of lisinopril 20 mg daily 6. Hyperlipidemia; Lipitor 10 mg by mouth daily at bedtime 7. BPH; Flomax 0.4 mg twice a day 8. Dementia; we will continue with home dose of Aricept DVT prophylaxis; SCDs; hold off on, anticoagulation to the patient evaluated by urology in anticipation of urologic procedures requiting CODE STATUS; full code
[2022-03-09 08:01] LABS: Calcium 8.5 mg/dL (8.4-10.2); Potassium 4.3 mmol/L (3.5-5.1)
[2022-03-09] MEDS: lisinopriL 20 MG TAB PO SCH (08:59)
[2022-03-09] MEDS: IBUPROFEN 600 MG TAB PO SCH ×4 (08:59→21:38)
[2022-03-09] MEDS: CEFEPIME 2 GM in SODIUM CHLORIDE 0.9% 100 ML IVPB SCH ×2 (08:59→15:57)
[2022-03-09] MEDS: IOPAMIDOL CONTRAST (ORAL USE) VIAL PO PRN ×2 (08:59→10:13)
[2022-03-09] MEDS: DOCUSATE 100 MG CAP PO SCH ×2 (08:59→19:26)
[2022-03-09] MEDS: TAMSULOSIN 0.4 MG CAP.ER.24H PO SCH ×2 (09:00→21:39)
[2022-03-09] MEDS: ATORVASTATIN 10 MG TAB PO SCH (09:00)
[2022-03-09] MEDS: DONEPEZIL 5 MG TAB PO SCH ×2 (09:19→21:38)
--- NOTE | 2022-03-09 11:52 | CT ---
EXAMINATION TYPE: CT abdomen pelvis w con DATE OF EXAM: 03/09/2022 COMPARISON: NONE HISTORY: 81-year-old male abdominal pain, sepsis, UTI TECHNIQUE: Contiguous axial scanning of the abdomen and pelvis following administration of 100 ml Iso toni 300 IV contrast. Delayed images through the kidneys and coronal/sagittal reconstructions perform ed. CT DLP: 905.5 mGycm Automated exposure control for dose reduction was used. FINDINGS: Aortic valve calcifications are noted. Heart upper limits of normal in size. Trace pericardial effusi on measuring 7 mm thick. There are also trace bilateral pleural effusions with adjacent atelectasis. Liver shows no focal lesion. Portal venous system is patent. No biliary ductal dilatation. There are Mild wall thickening along the first part of the duodenum may be due to nondistention, axial image 29 . Adrenal glands, spleen, pancreas within normal limits. Mild anasarca changes. Mild perinephric edema. Left-sided parapelvic cysts measuring up to 1.7 cm. Li mited excretion of contrast from the kidneys on delayed scan. Correlate for acute kidney injury. Mild atherosclerotic calcifications infrarenal abdominal aorta and common iliac arteries. No dilated small bowel or free air. Oral contrast progressed to the rectum. Left-sided colonic diverticulosis. No abnormal colonic wall t hickening to indicate acute diverticulitis. There is presacral edema. Rectum distended with stool and contrast up to 7.5 cm wide. Mild pelvic free fluid. Additional confluent extraperitoneal edema anter iorly. Rose catheter is in place. There is moderate to severe wall thickening of the bladder with surroundi ng inflammation. Prostate gland also prominently enlarged at 6.3 cm wide. There seems to be some exte nsion into the right side of the prostate gland possibly contiguous from the base of the bladder joi uring 2.6 x 1.0 cm, coronal image 44 and axial image 80. Bones: Mild to moderate degenerative change of the hips. Degenerative change SI joints. Moderately ad vanced degenerative change throughout the lumbar spine. IMPRESSION: 1. MODERATE TO SEVERE WALL THICKENING OF THE BLADDER WITH SURROUNDING INFLAMMATORY EDEMA. ROSE DOUG TER IN PLACE. CORRELATE FOR SEVERE CYSTITIS. 2. SOME FLUID DENSITY EXTENDS FROM THE BASE OF THE BLADDER INTO THE RIGHT SIDE OF THE PROSTATE GLAND MEASURING 2.6 X 1.0 CM. UNABLE TO EXCLUDE A DEVELOPING SECONDARY INTRAPROSTATIC ABSCESS. THE PROSTATE GLAND IS ALSO ENLARGED AT 6.3 CM WIDE AND MAY HAVE CONTIGUOUS INFLAMMATION/PROSTATITIS. 3. MILD GENERALIZED ANASARCA WITH TRACE PLEURAL EFFUSIONS, PRESACRAL EDEMA, AND TRACE PERICARDIAL EFF USION. 4. PROMINENT DISTENTION OF THE RECTUM UP TO 7.5 CM WIDE WITH STOOL AND CONTRAST. LEFT-SIDED COLONIC D IVERTICULOSIS WITHOUT ACUTE DIVERTICULITIS. 5. MILD WALL THICKENING ALONG THE FIRST PART OF THE DUODENUM MAY BE DUE TO UNDERDISTENTION. QUERY ANY SYMPTOMS OF DUODENITIS OR PEPTIC ULCER DISEASE. 6. DELAYED EXCRETION OF CONTRAST FROM THE KIDNEYS. CORRELATE WITH KIDNEY FUNCTION TO EXCLUDE SACHA.
[2022-03-09] MEDS: SODIUM CHLORIDE 0.9% 1,000 ML IV SCH ×2 (19:26→21:38)
[2022-03-10] MEDS: CEFEPIME 2 GM in SODIUM CHLORIDE 0.9% 100 ML IVPB SCH ×2 (00:06→08:54)
--- NOTE | 2022-03-10 06:37 | P.PN ---
Subjective Progress Note Date: 03/09/22 Sepsis/UTI Altered mental status; toxic metabolic encephalopathy Acute renal injury 81-year-old male who presents emergency Department because of altered mental status. Patient had prostate surgery yesterday and the states he was doing fine and then today he started to become very cold and shaking because he was so cold and started becoming altered on the way to the hospital she noted that he was started try to spit evenly wasn't spitting anything out. Patient then became combative with her and we got to the emergency department he refused to listen or do anything he was asked to do so he had to be brought back and restrained immediately. Patient's initial rectal temperature was 103. EKG shows sinus rhythm at 96 bpm AK interval is 205 cardiac 129 QT interval 390 QTC is 444. Patient's EKG shows a right bundle branch block. Blood work completed in ED reveals WBC of 10, hemoglobin of 13.8 and platelet count of 323, sodium 132, potassium 3.8, BUN/creatinine of 22/1.39; lactic acid elevated at 6.2; UA grossly infected Patient received Rocephin 2 g IV daily and is admitted for sepsis with further evaluation from urology 03/08/2022 Patient is seen and evaluated in room at bedside; patient is resting comfortably in bed and denies any complaint of chest and her shortness of breath Vital signs are reviewed and temperature 98.2, pulse 61, respirations 16 and blood pressure of 128/67 Lab review shows sodium 134, potassium 3.6, BUN/creatinine of 14/0.77 Patient presented to hospital with sepsis in this patient who did have fever elevated white count elevated lactic acid now with evidence of gram-negative bacteremia source likely urinary in this patient just completed cystoscopy and bipolar transurethral resection of the prostate and will need to cover for the common urinary Pathogen such as E. coli or Pseudomonas patient urine cultures are so far negative we will obtain CT of the abdomen and pelvis to make sure no evidence of any GI source of his bacteremia patient to continue with cefepime 2 g every 8 hours while waiting for the blood cultures to be finalize 03/09/2022 Patient is seen and evaluated and follow-up this morning and is scheduled to undergo CT abdomen to assess for abdominal source with ID following. Patient is continued on IV antibiotics in the form of cefepime and awaiting urine cultures. Preliminary blood cultures showing gram negative bacilli and awaiting repeat cultures. Recommend daily blood cultures to monitor for clearance. Patient is afebrile currently and denies chest pain or shortness of breath. Review of systems: Constitutional: reports of fatigue, no further fever, or chills Cardiovascular: No reports of chest pain or palpitations Respiratory: No reports of shortness of breath or cough GI: No reports of nausea, vomiting, or diarrhea : No reports of dysuria or retention Neurovascular: reports of generalized weakness All medications have been reviewed Active Medications Acetaminophen (Acetaminophen Tab 325 Mg Tab) 650 mg PO Q4HR PRN PRN Reason: Fever and/ or Pain Atorvastatin Calcium (Atorvastatin 10 Mg Tab) 10 mg PO DAILY [facility] Last Admin: 03/09/22 09:00 Dose: 10 mg Docusate Sodium (Docusate 100 Mg Cap) 100 mg PO BID [facility] Last Admin: 03/09/22 08:59 Dose: 100 mg Donepezil HCl (Donepezil 5 Mg Tab) 5 mg PO BID [facility] Last Admin: 03/09/22 09:19 Dose: 5 mg Sodium Chloride (Saline 0.9%) 1,000 mls @ 75 mls/hr IV .[id number] [facility] Last Admin: 03/08/22 18:03 Dose: Not Given Cefepime HCl 2 gm/ Sodium (Chloride) 100 mls @ 25 mls/hr IVPB Q8HR [facility]; Protocol Last Admin: 03/09/22 08:59 Dose: 25 mls/hr Ibuprofen (Ibuprofen 600 Mg Tab) 600 mg PO QID [facility] Last Admin: 03/09/22 12:34 Dose: 600 mg Lisinopril (Lisinopril 20 Mg Tab) 20 mg PO DAILY [facility] Last Admin: 03/09/22 08:59 Dose: 20 mg Tamsulosin HCl (Tamsulosin 0.4 Mg Cap.Er.24h) 0.4 mg PO BID [facility] Last Admin: 03/09/22 09:00 Dose: 0.4 mg Physical exam: General appearance: Present: average body habitus, cooperative, elderly male Eyes: Present: anicteric sclerae, EOMI, PERRLA, normal appearance Neck: Present: normal ROM. Absent: lymphadenopathy, rigidity, thyromegaly Carotids: negative: bruit present Thyroid: bilateral: normal size, negative: enlarged, nodule Respiratory: bilateral: diminished breath sounds bilaterally with some scattered rhonchi Cardiovascular: regular S1, S2 muffled Gastrointestinal: Present: normal bowel sounds, soft. Absent: distended, organomegaly, tenderness Integumentary: Present: normal turgor. Absent: jaundiced, rash, ulcer Neurologic: Present: CNII-XII intact. Absent: focal deficits Musculoskeletal: Present: gait normal, strength equal bilaterally Assessment: -Sepsis/UTI; present on admission -bacteremia possibly secondary to UTI -Altered mental status; toxic metabolic encephalopathy; likely related to UTI, sepsis, SACHA -Acute renal injury -Lactic acidosis -Hypertension -Hyperlipidemia -BPH -Dementia -DVT prophylaxis; SCDs; hold off on, anticoagulation to the patient evaluated by urology in anticipation of urologic procedures -full code Plan: Recommend to continue with IV abx and monitor for clearance of bacteremia. ID following closely and recommending daily blood cultures to monitor for clearance of bacteremia. preliminary cultures showing gram negative bacilli Recommend PT/OT evaluation Encouraged increased activity as tolerated. Recommend repeat am labs Due to multiple complex medical issues, prognosis is guarded. The impression and plan of care has been dictated by Mehreen Rivera, Nurse Practitioner as directed. Dr. Wilton MD I have performed a history and examination and MDM of this patient, discussed the same with the dictator, and agree with the dictator's assessment and plan as written ,documented as a scribe. Based on total visit time, I have performed more than 50% of the visit. Objective - Vital Signs Vital signs: Vital Signs Temp 98.4 F 03/09/22 08:57 Pulse 50 L 03/09/22 08:57 Resp 18 03/09/22 08:57 BP 138/68 03/09/22 08:57 Pulse Ox 97 03/09/22 08:57 FiO2 Intake & Output 03/08/22 03/09/22 03/09/22 18:59 06:59 18:59 Intake Total 454 1320 Output Total 1020 1200 Balance -566 120 Intake: IV 100 Cefepime 2 gm In Sodium 100 Chloride 0.9% 100 ml @ 25 mls/hr IVPB Q8HR [facility] Rx# :[id number] Intake, IV Titration 1200 Amount Cefepime 2 gm In Sodium 100 Chloride 0.9% 100 ml @ 25 mls/hr IVPB Q8HR [facility] Rx# :[id number] Sodium Chloride 0.9% 1, 1100 000 ml @ 75 mls/hr IV . [id number] [facility] Rx#:[id number] Oral 354 120 Output: Urine 1020 1200 Other: Voiding Method Indwelling Catheter Indwelling Catheter - Labs CBC & Chem 7: 03/07/22 07:50 03/09/22 06:58 Labs: Abnormal Lab Results - Last 24 Hours (Table) 03/09/22 Range/Units 06:58 Chloride 110 H (98-107) mmol/L Microbiology - Last 24 Hours (Table) 03/08/22 07:11 Blood Culture - Preliminary Blood No Growth after 24 hours 03/06/22 17:13 Urine Culture - Final Urine,Voided 03/06/22 16:06 Blood Culture Gram Stain - Preliminary Blood Blood Culture - Preliminary Bacillus species Not Anthracis Gram Neg Bacilli 03/06/22 15:50 Blood Culture Gram Stain - Preliminary Blood Blood Culture - Preliminary Escherichia coli
[2022-03-10 08:18] LABS: African American GFR (CKD) >90 (>60 ml/min/1.73 sqM); Anion Gap 6 mmol/L; Blood Urea Nitrogen 10 mg/dL (9-20); Calcium 8.4 mg/dL (8.4-10.2); Carbon Dioxide 20 mmol/L (22-30); Chloride 111 mmol/L (98-107); Glucose 121 mg/dL (74-99); Non-African American GFR(CKD) 84 (>60 ml/min/1.73 sqM); Potassium 3.7 mmol/L (3.5-5.1); Sodium 137 mmol/L (137-145)
[2022-03-10 08:28] LABS: Basophils % (A) 1 %; Eosinophils # (A) 0.2 k/uL (0-0.7); Eosinophils % (A) 4 %; HGB 12.8 gm/dL (13.0-17.5); Lymphocytes # (A) 0.8 k/uL (1.0-4.8); Lymphocytes % (A) 16 %; MCHC 34.7 g/dL (31.0-37.0); Mean Platelet Volume 7.8; Monocytes # (A) 0.4 k/uL (0-1.0); Monocytes % (A) 8 %; Neutrophils # (A) 3.7 k/uL (1.3-7.7); Neutrophils % (A) 70 %; Platelet Count 254 k/uL (150-450); RBC 3.78 m/uL (4.30-5.90); RDW 12.7 % (11.5-15.5); WBC 5.2 k/uL (3.8-10.6)
[2022-03-10] MEDS: lisinopriL 20 MG TAB PO SCH (08:54)
[2022-03-10] MEDS: ATORVASTATIN 10 MG TAB PO SCH (08:54)
[2022-03-10] MEDS: TAMSULOSIN 0.4 MG CAP.ER.24H PO SCH ×2 (08:54→19:46)
[2022-03-10] MEDS: DONEPEZIL 5 MG TAB PO SCH ×2 (08:54→19:47)
[2022-03-10] MEDS: DOCUSATE 100 MG CAP PO SCH ×2 (08:54→19:47)
[2022-03-10] MEDS: IBUPROFEN 600 MG TAB PO SCH ×4 (08:54→20:53)
--- NOTE | 2022-03-10 09:04 | P.PN ---
Progress Note - Text Progress Note Date: 03/10/22 Mr. Wooten experienced diarrhea yesterday but states that this is improved today. He states that his urine was dark yesterday, but the Avilez catheter is draining clear yellow urine this morning. Cultures have shown E. coli. He may be discharged home on oral antibiotics once felt to be medically stable. He will follow up with me on March 16 in the office for Avilez catheter removal. Please notify me if I can be of any further assistance.
--- NOTE | 2022-03-10 20:50 | P.PN ---
Subjective Progress Note Date: 03/10/22 Sepsis/UTI Altered mental status; toxic metabolic encephalopathy Acute renal injury 81-year-old male who presents emergency Department because of altered mental status. Patient had prostate surgery yesterday and the states he was doing fine and then today he started to become very cold and shaking because he was so cold and started becoming altered on the way to the hospital she noted that he was started try to spit evenly wasn't spitting anything out. Patient then became combative with her and we got to the emergency department he refused to listen or do anything he was asked to do so he had to be brought back and restrained immediately. Patient's initial rectal temperature was 103. EKG shows sinus rhythm at 96 bpm PA interval is 205 cardiac 129 QT interval 390 QTC is 444. Patient's EKG shows a right bundle branch block. Blood work completed in ED reveals WBC of 10, hemoglobin of 13.8 and platelet count of 323, sodium 132, potassium 3.8, BUN/creatinine of 22/1.39; lactic acid elevated at 6.2; UA grossly infected Patient received Rocephin 2 g IV daily and is admitted for sepsis with further evaluation from urology 03/08/2022 Patient is seen and evaluated in room at bedside; patient is resting comfortably in bed and denies any complaint of chest and her shortness of breath Vital signs are reviewed and temperature 98.2, pulse 61, respirations 16 and blood pressure of 128/67 Lab review shows sodium 134, potassium 3.6, BUN/creatinine of 14/0.77 Patient presented to hospital with sepsis in this patient who did have fever elevated white count elevated lactic acid now with evidence of gram-negative bacteremia source likely urinary in this patient just completed cystoscopy and bipolar transurethral resection of the prostate and will need to cover for the common urinary Pathogen such as E. coli or Pseudomonas patient urine cultures are so far negative we will obtain CT of the abdomen and pelvis to make sure no evidence of any GI source of his bacteremia patient to continue with cefepime 2 g every 8 hours while waiting for the blood cultures to be finalize 03/09/2022 Patient is seen and evaluated and follow-up this morning and is scheduled to undergo CT abdomen to assess for abdominal source with ID following. Patient is continued on IV antibiotics in the form of cefepime and awaiting urine cultures. Preliminary blood cultures showing gram negative bacilli and awaiting repeat cultures. Recommend daily blood cultures to monitor for clearance. Patient is afebrile currently and denies chest pain or shortness of breath. 03/10/2022 Patient is seen in follow up today and is being closely monitored for clearance of bacteremia. Patient is continued on IV abx with ID and urology following closely. Urology recommending follow up in the office. Blood cultures finalized ecoli with sensitivities and will discuss with ID about discharge planning. Patient is afebrile and denies chest pain or shortness of breath. Patient denies nausea or vomiting and tolerating diet. Encouraged increased activity as tolerated and also encouraged oral intake. Patient is to continue with zaidi catheter. Review of systems: Constitutional: reports of fatigue, no further fever, or chills Cardiovascular: No reports of chest pain or palpitations Respiratory: No reports of shortness of breath or cough GI: No reports of nausea, vomiting, or diarrhea : No reports of dysuria or retention Neurovascular: reports of generalized weakness All medications have been reviewed Active Medications Acetaminophen (Acetaminophen Tab 325 Mg Tab) 650 mg PO Q4HR PRN PRN Reason: Fever and/ or Pain Atorvastatin Calcium (Atorvastatin 10 Mg Tab) 10 mg PO DAILY [facility] Last Admin: 03/10/22 08:54 Dose: 10 mg Docusate Sodium (Docusate 100 Mg Cap) 100 mg PO BID [facility] Last Admin: 03/10/22 19:47 Dose: 100 mg Donepezil HCl (Donepezil 5 Mg Tab) 5 mg PO BID [facility] Last Admin: 03/10/22 19:47 Dose: 5 mg Sodium Chloride (Saline 0.9%) 1,000 mls @ 75 mls/hr IV .[id number] [facility] Last Admin: 03/09/22 21:38 Dose: Not Given Ceftriaxone Sodium 2 gm/ (Sodium Chloride) 50 mls @ 100 mls/hr IVPB Q24HR [facility]; Protocol Last Admin: 03/10/22 15:02 Dose: 100 mls/hr Ibuprofen (Ibuprofen 600 Mg Tab) 600 mg PO QID [facility] Last Admin: 03/10/22 19:14 Dose: Not Given Lisinopril (Lisinopril 20 Mg Tab) 20 mg PO DAILY [facility] Last Admin: 03/10/22 08:54 Dose: 20 mg Tamsulosin HCl (Tamsulosin 0.4 Mg Cap.Er.24h) 0.4 mg PO BID [facility] Last Admin: 03/10/22 19:46 Dose: 0.4 mg Physical exam: General appearance: Present: average body habitus, cooperative, elderly male Eyes: Present: anicteric sclerae, EOMI, PERRLA, normal appearance Neck: Present: normal ROM. Absent: lymphadenopathy, rigidity, thyromegaly Carotids: negative: bruit present Thyroid: bilateral: normal size, negative: enlarged, nodule Respiratory: bilateral: diminished breath sounds bilaterally with some scattered rhonchi Cardiovascular: regular S1, S2 muffled Gastrointestinal: Present: normal bowel sounds, soft. Absent: distended, organomegaly, tenderness Integumentary: Present: normal turgor. Absent: jaundiced, rash, ulcer Neurologic: Present: CNII-XII intact. Absent: focal deficits Musculoskeletal: Present: gait normal, strength equal bilaterally Assessment: -Sepsis/UTI; present on admission -bacteremia possibly secondary to UTI -Altered mental status; toxic metabolic encephalopathy; likely related to UTI, sepsis, SACHA -Acute renal injury -Lactic acidosis -Hypertension -Hyperlipidemia -BPH -Dementia -DVT prophylaxis; SCDs; hold off on, anticoagulation to the patient evaluated by urology in anticipation of urologic procedures -full code Plan: Recommend to continue with IV abx and monitor for clearance of bacteremia. ID following closely and recommending daily blood cultures to monitor for clearance of bacteremia. cultures showing ecoli with sensitivities and will discuss with ID about discharge planning. Recommend PT/OT evaluation Encouraged increased activity as tolerated. Recommend repeat am labs Due to multiple complex medical issues, prognosis is guarded. Possible discharge in 24 hours. The impression and plan of care has been dictated by Mehreen Rivera, Nurse Practitioner as directed. Dr. Wilton MD I have performed a history and examination and MDM of this patient, discussed the same with the dictator, and agree with the dictator's assessment and plan as written ,documented as a scribe. Based on total visit time, I have performed more than 50% of the visit. Objective - Vital Signs Vital signs: Vital Signs Temp 97.9 F 03/10/22 08:50 Pulse 55 L 03/10/22 08:50 Resp 16 03/10/22 08:50 BP 130/64 03/10/22 08:50 Pulse Ox 98 03/10/22 08:50 FiO2 Intake & Output 03/09/22 03/10/22 03/10/22 18:59 06:59 18:59 Intake Total 240 118 Output Total 1200 1500 Balance -960 -1500 118 Intake: Oral 240 118 Output: Urine 1200 1500 Other: Voiding Method Indwelling Catheter Indwelling Catheter # Bowel Movements 1 - Labs CBC & Chem 7: 03/10/22 07:37 03/10/22 07:37 Labs: Abnormal Lab Results - Last 24 Hours (Table) 03/10/22 03/10/22 Range/Units 07:37 07:37 RBC 3.78 L (4.30-5.90) m/uL Hgb 12.8 L (13.0-17.5) gm/dL Hct 37.0 L (39.0-53.0) % Lymphocytes # 0.8 L (1.0-4.8) k/uL Chloride 111 H (98-107) mmol/L Carbon Dioxide 20 L (22-30) mmol/L Glucose 121 H (74-99) mg/dL Microbiology - Last 24 Hours (Table) 03/06/22 16:06 Blood Culture Gram Stain - Final Blood Blood Culture - Final Escherichia coli Bacillus species Not Anthracis 03/06/22 15:50 Blood Culture Gram Stain - Final Blood Blood Culture - Final Escherichia coli 03/08/22 07:11 Blood Culture - Preliminary Blood No Growth after 24 hours
--- NOTE | 2022-03-10 23:03 | P.PN ---
Subjective Progress Note Date: 03/09/22 Principal diagnosis: Gram-negative bacteremia Patient is a 81-year-old male who is status post cystoscopy with bipolar transurethral resection of the prostate procedure was completed on 03/05/2022 and the patient was discharged home in stable condition with a Avilez catheter patient is presenting to the hospital the next day that is yesterday on 03/06/2022 because of mental status changes, patient also have evidence of gram- negative bacteremia, did have a positive UA . On today's evaluation that is 03/09/2022, the patient remains to be afebrile , the patient is breathing comfortably on room air, the patient denies any chest pain or shortness of breath or cough , the patient denies abdominal pain andno diarrhea Objective - Vital Signs Vital signs: Vital Signs Temp 98.4 F 03/09/22 08:57 Pulse 50 L 03/09/22 08:57 Resp 18 03/09/22 08:57 BP 138/68 03/09/22 08:57 Pulse Ox 97 03/09/22 08:57 FiO2 Intake & Output 03/08/22 03/09/22 03/09/22 18:59 06:59 18:59 Intake Total 454 1320 Output Total 1020 1200 Balance -566 120 Intake: IV 100 Cefepime 2 gm In Sodium 100 Chloride 0.9% 100 ml @ 25 mls/hr IVPB Q8HR [facility] Rx# :[id number] Intake, IV Titration 1200 Amount Cefepime 2 gm In Sodium 100 Chloride 0.9% 100 ml @ 25 mls/hr IVPB Q8HR [facility] Rx# :[id number] Sodium Chloride 0.9% 1, 1100 000 ml @ 75 mls/hr IV . [id number] [facility] Rx#:[id number] Oral 354 120 Output: Urine 1020 1200 Other: Voiding Method Indwelling Catheter Indwelling Catheter Indwelling Catheter - Exam GENERAL DESCRIPTION: An elderly male lying in bed in no distress RESPIRATORY SYSTEM: Unlabored breathing , decreased breath sounds at bases HEART: S1 S2 regular rate and rhythm , ABDOMEN: Soft , no tenderness EXTREMITIES: No edema feet - Labs CBC & Chem 7: 03/10/22 07:37 03/10/22 07:37 Labs: Abnormal Lab Results - Last 24 Hours (Table) 03/09/22 Range/Units 06:58 Chloride 110 H (98-107) mmol/L Microbiology - Last 24 Hours (Table) 03/08/22 07:11 Blood Culture - Preliminary Blood No Growth after 24 hours 03/06/22 17:13 Urine Culture - Final Urine,Voided 03/06/22 16:06 Blood Culture Gram Stain - Preliminary Blood Blood Culture - Preliminary Bacillus species Not Anthracis Gram Neg Bacilli 03/06/22 15:50 Blood Culture Gram Stain - Preliminary Blood Blood Culture - Preliminary Escherichia coli Assessment and Plan (1) Positive blood culture Current Visit: Yes Status: Acute Code(s): R78.81 - BACTEREMIA SNOMED Code(s): 891489025 (2) Sepsis Current Visit: Yes Status: Acute Code(s): A41.9 - SEPSIS, UNSPECIFIED ORGANISM SNOMED Code(s): 99898634 (3) Urinary tract infection Current Visit: Yes Status: Acute Code(s): N39.0 - URINARY TRACT INFECTION, SITE NOT SPECIFIED SNOMED Code(s): 49926336 Plan: 1patient with gram-positive bacilli seen in the blood culture more likely contaminant. 2patient presented to hospital with sepsis in this patient who did have fever elevated white count elevated lactic acid now with evidence of gram-negative bacteremia source likely urinary in this patient just completed cystoscopy and bipolar transurethral resection of the prostate and will need to cover for the common urinary Pathogen such as E. coli 3patient urine cultures are so far negative, blood culture with gram-negative ID sensitivity still pending 4patient did have CT of the abdomen and pelvis did shows evidence of cystitis and periProstatic inflammation and fluid collection 5patient to continue with cefepime 2 g every 8 hours while waiting for the blood cultures to be finalize and monitor clinical course closely Time with Patient: Less than 30
--- NOTE | 2022-03-10 23:05 | P.PN ---
Subjective Progress Note Date: 03/10/22 Principal diagnosis: Gram-negative bacteremia Patient is a 81-year-old male who is status post cystoscopy with bipolar transurethral resection of the prostate procedure was completed on 03/05/2022 and the patient was discharged home in stable condition with a Avilez catheter patient is presenting to the hospital the next day that is yesterday on 03/06/2022 because of mental status changes, patient also have evidence of gram- negative bacteremia, did have a positive UA . On today's evaluation that is 03/10/2022, the patient continues to be afebrile , the patient is breathing comfortably on room air, the patient denies any chest pain or shortness of breath or cough , the patient denies abdominal pain and no diarrhea, patient is overall feeling better Objective - Vital Signs Vital signs: Vital Signs Temp 97.9 F 03/10/22 08:50 Pulse 55 L 03/10/22 08:50 Resp 16 03/10/22 08:50 BP 130/64 03/10/22 08:50 Pulse Ox 98 03/10/22 08:50 FiO2 Intake & Output 03/09/22 03/10/22 03/10/22 18:59 06:59 18:59 Intake Total 240 118 Output Total 1200 1500 Balance -960 -1500 118 Intake: Oral 240 118 Output: Urine 1200 1500 Other: Voiding Method Indwelling Catheter Indwelling Catheter Indwelling Catheter # Bowel Movements 1 - Exam GENERAL DESCRIPTION: An elderly male lying in bed in no distress RESPIRATORY SYSTEM: Unlabored breathing , decreased breath sounds at bases HEART: S1 S2 regular rate and rhythm , ABDOMEN: Soft , no tenderness EXTREMITIES: No edema feet - Labs CBC & Chem 7: 03/10/22 07:37 03/10/22 07:37 Labs: Abnormal Lab Results - Last 24 Hours (Table) 03/10/22 03/10/22 Range/Units 07:37 07:37 RBC 3.78 L (4.30-5.90) m/uL Hgb 12.8 L (13.0-17.5) gm/dL Hct 37.0 L (39.0-53.0) % Lymphocytes # 0.8 L (1.0-4.8) k/uL Chloride 111 H (98-107) mmol/L Carbon Dioxide 20 L (22-30) mmol/L Glucose 121 H (74-99) mg/dL Microbiology - Last 24 Hours (Table) 03/08/22 07:11 Blood Culture - Preliminary Blood No Growth after 48 hours 03/06/22 16:06 Blood Culture Gram Stain - Final Blood Blood Culture - Final Escherichia coli Bacillus species Not Anthracis 03/06/22 15:50 Blood Culture Gram Stain - Final Blood Blood Culture - Final Escherichia coli Assessment and Plan (1) Positive blood culture Current Visit: Yes Status: Acute Code(s): R78.81 - BACTEREMIA SNOMED Code(s): 879079349 (2) Sepsis Current Visit: Yes Status: Acute Code(s): A41.9 - SEPSIS, UNSPECIFIED ORGANISM SNOMED Code(s): 58235780 (3) Urinary tract infection Current Visit: Yes Status: Acute Code(s): N39.0 - URINARY TRACT INFECTION, SITE NOT SPECIFIED SNOMED Code(s): 33586919 Plan: 1patient with gram-positive bacilli seen in the blood culture more likely contaminant. 2patient presented to hospital with sepsis in this patient who did have fever elevated white count elevated lactic acid now with evidence of gram-negative bacteremia source likely urinary in this patient just completed cystoscopy and bipolar transurethral resection of the prostate , patient urine cultures are so far negative, blood culture with E. coli that is sensitive pathogen. Blood culture negative so far 3- patient did have CT of the abdomen and pelvis did shows evidence of cystitis and periProstatic inflammation and fluid collection 4 we will discontinue cefepime and start the patient Rocephin 2 g daily in view of extensive infection may benefit from IV antibiotic on discharge, window caser to check his outpatient coverage Time with Patient: Less than 30
[2022-03-11] MEDS: SODIUM CHLORIDE 0.9% 1,000 ML IV SCH ×2 (07:33→10:59)
[2022-03-11] MEDS: lisinopriL 20 MG TAB PO SCH (07:42)
[2022-03-11] MEDS: DONEPEZIL 5 MG TAB PO SCH (07:42)
[2022-03-11] MEDS: IBUPROFEN 600 MG TAB PO SCH ×2 (07:42→12:49)
[2022-03-11] MEDS: TAMSULOSIN 0.4 MG CAP.ER.24H PO SCH (07:42)
[2022-03-11] MEDS: ATORVASTATIN 10 MG TAB PO SCH (07:42)
[2022-03-11] MEDS: DOCUSATE 100 MG CAP PO SCH (07:43)
[2022-03-11 07:51] VITALS: RESP 16; TEMP 97.7
[2022-03-11 12:07] VITALS: BP 138/63
[2022-03-11 12:09] VITALS: PULSE 47
--- NOTE | 2022-03-12 15:11 | P.DS ---
Providers Date of admission: 03/06/22 18:57 Expected date of discharge: 03/11/22 Attending physician: Shruthi Zepeda MD Consults: 03/07/22 06:23 Consult Physician Routine Consulting Provider: Hay Madrid Consult Reason/Comments: Positive Blood Cultures Do you want consulting provider notified?: Yes Primary care physician: Fany King Hospital Course: Final diagnosis -Sepsis/UTI; present on admission -bacteremia possibly secondary to UTI with E. coli -Altered mental status; toxic metabolic encephalopathy; likely related to UTI, sepsis, SACHA, improved -Acute renal injury -Lactic acidosis -Hypertension -Hyperlipidemia -BPH -Dementia -DVT prophylaxis -full code Discharge disposition Patient is being discharged in a stable condition with guarded prognosis to . Patient will follow-up with Dr. King in the outpatient setting upon discharge. Patient is to follow-up with urology along with infectious disease at the [facility] as scheduled. Patient will continue on oral Cipro 500 mg twice daily for the next 10 days. Patient will continue with indwelling Avilez catheter and recommend repeat labs in the outpatient setting and urology follow-up in the next 1-2 weeks. Total time taken is greater than 35 minutes. Hospital course This is a 81-year-old male who was recently admitted with sepsis, present on admission with altered mental status possibly secondary to UTI and was being closely monitored. Patient was having fevers and was admitted for further evaluation. Patient was started on IV antibiotics and was also found to have bacteremia noted in the blood with E. coli. Repeat blood cultures have been negative and patient is being continued on oral antibiotics in the form of Cipro 500 mg twice daily for the next 10 days with close outpatient follow-up with infectious disease along with urology. Patient will continue with indwelling Avilez catheter and follow-up with urology for removal on March 16 at his appointment. She reports to feeling much better and would like to go home. at the bedside with questions and concerns were answered. Recommend close outpatient follow-up with primary care provider and repeat labs in the next 1 week or so. was concerned of some hematuria noted in the Avilez and hemoglobin is stable at 12.8. This appears to be improving. Currently no reports of chest pain, shortness of breath, or palpitations. Patient is afebrile. No reports of nausea or vomiting and patient is tolerating diet. Patient will be going to [place] [place] today. Physical exam: Gen: This is a 81-year-old male awake, alert and oriented 3, thin built. HEENT: Head is atraumatic, normocephalic. Pupils equal, round. Sclerae is anicteric. NECK: Supple. No JVD. No lymphadenopathy. No thyromegaly. LUNGS: Clear to auscultation. No wheezes or rhonchi. No intercostal retractions. HEART: Regular rate and rhythm. No murmur. ABDOMEN: Soft. Bowel sounds are present. No masses. No tenderness. EXTREMITIES: No pedal edema. No calf tenderness. NEUROLOGICAL: Patient is awake, alert and oriented x3. Cranial nerves 2 through 12 are grossly intact. Please refer to medication reconciliation sheet for a list of medications. The impression and plan of care has been dictated by Mehreen Rivera, Nurse Practitioner as directed. Dr. Sunil MD I have performed a history and examination and MDM of this patient, discussed the same with the dictator, and agree with the dictator's assessment and plan as written ,documented as a scribe. Based on total visit time, I have performed more than 50% of the visit. Patient Condition at Discharge: Stable Plan - Discharge Summary Discharge Rx Participant: No New Discharge Prescriptions: New Ciprofloxacin HCl [Cipro] 500 mg PO BID 10 Days #20 tab Docusate [Colace] 100 mg PO BID cap Ibuprofen [Motrin] 600 mg PO QID tab Acetaminophen Tab [Tylenol] 650 mg PO Q4HR PRN tab PRN Reason: Fever And/ Or Pain Continue lisinopriL [Zestril] 20 mg PO DAILY Tamsulosin [Flomax] 0.4 mg PO BID Donepezil [Aricept] 5 mg PO BID Atorvastatin [Lipitor] 10 mg PO DAILY Discharge Medication List lisinopriL [Zestril] 20 mg PO DAILY 02/05/17 [History] Donepezil [Aricept] 5 mg PO BID 03/03/22 [History] Tamsulosin [Flomax] 0.4 mg PO BID 03/03/22 [History] Atorvastatin [Lipitor] 10 mg PO DAILY 03/06/22 [History] Acetaminophen Tab [Tylenol] 650 mg PO Q4HR PRN tab 03/11/22 [Rx] Ciprofloxacin HCl [Cipro] 500 mg PO BID 10 Days #20 tab 03/11/22 [Rx] Docusate [Colace] 100 mg PO BID cap 03/11/22 [Rx] Ibuprofen [Motrin] 600 mg PO QID tab 03/11/22 [Rx] Follow up Appointment(s)/Referral(s): Patrick Ramachandran MD [STAFF PHYSICIAN] - 03/16/22 1:00 pm (Appointment made by spouse.) Fany King III, MD [Primary Care Provider] - 03/13/22 11:15 am Hay Madrid MD [STAFF PHYSICIAN] - 03/24/22 2:30 pm Patient Instructions/Handouts: Urinary Tract Infection in Men (DC), Sepsis (DC) Activity/Diet/Wound Care/Special Instructions: Activity Limited until follow-up Follow-up with primary care provider on discharge Continue with indwelling Avilez catheter until follow-up with urology Keep scheduled appointments Continue taking antibiotics as prescribed Discharge Disposition: HOME SELF-CARE
== END 2022-03-11 14:50 | disposition home or self-care (01) | DRG 871 ==
LOC: EC 15:54 → 3SCARD 18:57
PROVIDERS: ADMIT Internal Medicine; ATTEND Internal Medicine
DX: A41.51 Sepsis due to Escherichia coli [E. coli] (principal); G92.8 Other toxic encephalopathy; N17.9 Acute kidney failure, unspecified; E87.2 Acidosis; N39.0 Urinary tract infection, site not specified; F03.90 Unspecified dementia, unspecified severity, without behavioral disturbance, psychotic disturbance, mood disturbance, and anxiety; Z20.822 Contact with and (suspected) exposure to COVID-19; Z28.310 Unvaccinated for COVID-19; N40.1 Benign prostatic hyperplasia with lower urinary tract symptoms; I10 Essential (primary) hypertension; I45.10 Unspecified right bundle-branch block; E78.5 Hyperlipidemia, unspecified; Z79.899 Other long term (current) drug therapy; Z87.891 Personal history of nicotine dependence; Z80.1 Family history of malignant neoplasm of trachea, bronchus and lung
CPT/HCPCS: 36415; 71045; 74177; 80048; 80053; 81001; 83605; 84145; 85025; 85610; 85730; 86140; 87040; 87077; 87086; 87186; 87502; 87635; 88305; 93005; 96365; 96366; 96367; 96368; 96375; 99291

== ENCOUNTER → 2023-11-25 | Outpatient (CLI) | payer MEDICARE, BC ==
[2023-11-25 15:52] LABS: BUN/Creat Ratio 17.67 Ratio (12.00-20.00); Blood Urea Nitrogen 15.9 mg/dL (9.0-27.0); Calcium 9.5 mg/dL (8.7-10.3); Chloride 105 mmol/L (96-109); Glucose 142 mg/dL (70-110); Sodium 140 mmol/L (135-145)
[2023-11-25 15:59] LABS: Basophils # (A) 0.07 X 10*3/uL (0.00-0.10); Eosinophils # (A) 0.33 X 10*3/uL (0.04-0.35); Eosinophils % (A) 4.7 %; HCT 41.2 % (39.6-50.0); HGB 14.4 g/dL (13.0-17.0); Lymphocytes # (A) 2.32 X 10*3/uL (0.90-5.00); Lymphocytes % (A) 33.4 %; MCH 33.3 pg (27.0-32.0); MCV 95.2 FL (80.0-97.0); Mean Platelet Volume 9.9 FL (9.5-12.2); Monocytes # (A) 0.54 X 10*3/uL (0.20-1.00); Monocytes % (A) 7.8 %; NRBC Per 100 WBC 0 X 10*3/uL (0.00-0.01); Neutrophils # (A) 3.68 X 10*3/uL (1.80-7.70); Platelet Count 287 X 10*3/uL (140-440); RBC 4.33 X 10*6/uL (4.40-5.60); RDW 12.3 % (11.5-14.5); WBC 6.95 X 10*3/uL (4.50-10.00)
== END | disposition home or self-care (01) ==
LOC: LABPAT 13:10
PROVIDERS: ATTEND Urology
DX: Z01.812 Encounter for preprocedural laboratory examination (principal); N35.912 Unspecified bulbous urethral stricture, male
CPT/HCPCS: 36415; 80048; 85025

== ENCOUNTER 2023-12-02 09:43 | Day surgery (SDC) | payer MEDICARE, BC ==
--- NOTE | 2023-11-28 21:35 | P.GSHP ---
History of Present Illness H&P Date: 11/28/23 Chief Complaint: Weak urinary stream The patient is an 83-year-old white male with a history of incomplete bladder emptying due to BPH. He underwent a TURP in February 2022. 32 g of tissue was resected, showing no evidence of malignancy. His voiding symptoms improved significantly, but his stream has gradually weakened and bladder emptying is complete. Cystoscopy has shown a 4-6 Singaporean caliber bulbous urethral stricture. Alternative treatment options were reviewed with the patient and his in detail. These include urethral dilation versus direct visual internal ureterotomy (DVIU) with or without Optilume urethral balloon treatment. They have chosen to undergo DVIU with Optilume treatment. - Cardiovascular Cardiovascular: Reports high blood pressure - Genitourinary (Male) Genitourinary: Denies dysuria, Denies hematuria Past Medical History Past Medical History: Hypertension Additional Past Medical History / Comment(s): tinnitis History of Any Multi-Drug Resistant Organisms: None Reported Past Surgical History: Tonsillectomy Additional Past Surgical History / Comment(s): colonoscopy Past Anesthesia/Blood Transfusion Reactions: No Reported Reaction Additional Past Anesthesia/Blood Transfusion Reaction / Comment(s): no hx blood transfusion Past Alcohol Use History: Occasional - Past Family History Mother Family Medical History: No Reported History Father Family Medical History: Cancer Additional Family Medical History / Comment(s): lung Medications and Allergies Home Medications Medication Instructions Recorded Confirmed Type lisinopriL [Zestril] 20 mg PO DAILY 02/05/17 03/06/22 History Donepezil [Aricept] 5 mg PO BID 03/03/22 03/06/22 History Tamsulosin [Flomax] 0.4 mg PO BID 03/03/22 03/06/22 History Atorvastatin [Lipitor] 10 mg PO DAILY 03/06/22 03/06/22 History Acetaminophen Tab [Tylenol] 650 mg PO Q4HR PRN tab 03/11/22 Rx Ciprofloxacin HCl [Cipro] 500 mg PO BID 10 Days #20 tab 03/11/22 Rx Docusate [Colace] 100 mg PO BID cap 03/11/22 Rx Ibuprofen [Motrin] 600 mg PO QID tab 03/11/22 Rx Allergies Allergy/AdvReac Type Severity Reaction Status Date / Time No Known Allergies Allergy Verified 03/06/22 18:27 Surgical - Exam - General well developed, well nourished, no distress - Respiratory normal respiratory effort - Genitourinary testicles non-tender - Rectum Rectum: normal sphincter tone, no masses, other (Prostate mildly enlarged and smooth) - Psychiatric oriented to time, oriented to person, oriented to place, speech is normal, memory intact Assessment and Plan (1) Unspecified bulbous urethral stricture, male Status: Acute Code(s): N35.912 - UNSPECIFIED BULBOUS URETHRAL STRICTURE, MALE SNOMED Code(s): 7590265894 Plan: Cystoscopy, DVIU with Optilume treatment. The procedure has been reviewed in detail with the patient and his . They are aware of potential risks, which include anesthesia, bleeding, infection, and recurrent urethral stricture.
[2023-11-29 09:49] VITALS: BMI 25.5
[~2023-12-02 09:43] MED LIST changes: -LACTATED RINGERS 1,000 ML IV SCH; +fentaNYL (PF) 50 MCG/ML 2 ML AMP IV PRN
[2023-12-02] MEDS: LACTATED RINGERS 1,000 ML IV SCH (10:11)
[2023-12-02] MEDS: DEXAMETHASONE SOD PHOSPHATE 4 MG/ML 1 ML VIAL IV ONE (10:32)
[2023-12-02] MEDS: ONDANSETRON 4 MG/2 ML VIAL IVP ONE (10:32)
[2023-12-02 10:41] VITALS: TEMP 97.7
[2023-12-02] MEDS ORDERED: GLYCOPYRROLATE 0.2 MG/ML 2 ML VIAL ONE (11:30)
[2023-12-02] MEDS ORDERED: SUCCINYLCHOLINE CHLORIDE 200 MG/10 ML VIAL IV ONE (11:30)
[2023-12-02] MEDS ORDERED: PROPOFOL 10 MG/ML 20 ML VIAL IV ONE (11:30)
[2023-12-02] MEDS ORDERED: MIDAZOLAM 2 MG/2 ML VIAL ONE (11:30)
[2023-12-02] MEDS ORDERED: LIDOCAINE 1% INJ 10MG/ML (20 ML MDV) ONE (11:30)
[2023-12-02] MEDS ORDERED: fentaNYL (PF) 50 MCG/ML 2 ML AMP ONE (11:30)
--- NOTE | 2023-12-02 12:38 | P.OP ---
Date of Procedure: 12/02/23 Preoperative Diagnosis: Bulbous urethral stricture Postoperative Diagnosis: Same Procedure(s) Performed: Cystoscopy, direct visual internal urethrotomy (DVIU), Optilume drug-coated balloon dilation of stricture Anesthesia: OJRDAN Surgeon: Patrick Ramachandran Estimated Blood Loss (ml): 5 IV fluids (ml): 300 Pathology: none sent Condition: stable Disposition: PACU Indications for Procedure: The patient is an 83-year-old white male with a history of incomplete bladder emptying due to BPH. He underwent a TURP in February 2022. 32 g of tissue was resected, showing no evidence of malignancy. His voiding symptoms improved significantly, but his stream has gradually weakened and bladder emptying is complete. Cystoscopy has shown a 4-6 [place] caliber bulbous urethral stricture. Alternative treatment options were reviewed with the patient and his in detail. These include urethral dilation versus direct visual internal ureterotomy (DVIU) with or without Optilume urethral balloon treatment. They have chosen to undergo DVIU with Optilume treatment. Operative Findings: Tight bulbous urethral stricture. Description of Procedure: The patient was taken to the operating room and placed in the dorsolithotomy position, with his legs supported in Jai stirrups. The external genitalia was prepped and draped sterilely. The 0 lens was used to advance the visual urethrotome into the urethra. A stricture was encountered within the bulbous urethra, with only a pinhole lumen measuring approximately 2 [place] in caliber. Using the straight blade, the stricture was incised at the 12 o'clock position. The incision was carried through the full-thickness of the stricture. The stricture opened nicely. The length and size was approximately 3 cm. It was then possible to advance the visual urethrotome into the bladder. The visual urethrotome was then introduced into the bladder. The prostatic fossa was wide open, due to prior TURP. The ureteral orifice ease appeared normal. The bladder was heavily trabeculated. No tumors or foreign bodies were seen. A 0.035 inch Glidewire was passed through the visual urethrotome, which was removed. A 30 [place], 5 cm Optilume drug-coated balloon was then advanced over the wire. The cystoscope was passed alongside the wire, to assure that the balloon location was appropriately over the stricture. The distal end of the balloon extended approximately 5 mm distal to the DVIU incision, and the balloon was inflated to a pressure of 10 letha for 5 minutes. After 5 minutes, the balloon was deflated and the Optilume catheter was removed. The scalpel was used to incise the tip of a 16 [place] Avilez catheter, which was passed over the wire. The wire was removed, and the catheter was connected to gravity drainage. The return was clear. The patient tolerated the procedure well was taken to the recovery room in stable condition.
[2023-12-02 14:24] VITALS: BP 141/75; PULSE 59
[2023-12-02 14:25] VITALS: RESP 18
== END 2023-12-02 14:05 | disposition home or self-care (01) ==
LOC: OR 09:43
PROVIDERS: ATTEND Urology
DX: N35.912 Unspecified bulbous urethral stricture, male (principal); N40.1 Benign prostatic hyperplasia with lower urinary tract symptoms; I10 Essential (primary) hypertension; F03.90 Unspecified dementia, unspecified severity, without behavioral disturbance, psychotic disturbance, mood disturbance, and anxiety; Z87.891 Personal history of nicotine dependence; Z79.899 Other long term (current) drug therapy; Z98.890 Other specified postprocedural states
CPT/HCPCS: 52276; 52284; C1889